=== PATIENT | female | born 1965 | race Caucasian/White ===

== ENCOUNTER 2017-12-20 09:12 | Emergency (ER) | payer MEDICAID ==
[2017-12-20] MEDS ORDERED: cefTRIAXone 1,000 MG in Lidocaine 1% 4 ML IM ONE (09:25)
--- NOTE | 2017-12-20 09:27 | EDM.PDOC ---
ED HPI GENERAL MEDICAL PROBLEM - General Chief Complaint: Skin Complaint Stated Complaint: FACE RED AND SWOLLEN Time Seen by Provider: 12/20/17 09:25 Source of Information: Reports: Patient - History of Present Illness INITIAL COMMENTS - FREE TEXT/NARRATIVE: HISTORY AND PHYSICAL: History of present illness: [Patient with history of erysipelas presents with facial redness swelling tenderness well demarcated lesion involving both cheeks and over the bridge of her nose, she has used Keflex in the past with mixed results, she is also taken 3 days of Keflex at current without any benefit whatsoever no fever nausea vomiting chills sweats ] Review of systems: As per history of present illness and below otherwise all systems reviewed and negative. Past medical history: As per history of present illness and as reviewed below otherwise noncontributory. Surgical history: As per history of present illness and as reviewed below otherwise noncontributory. Social history: No reported history of drug or alcohol abuse. Family history: As per history of present illness and as reviewed below otherwise noncontributory. Physical exam: HEENT: Atraumatic, normocephalic, pupils reactive, negative for conjunctival pallor or scleral icterus, mucous membranes moist, throat clear, neck supple, nontender, trachea midline. Red rash well demarcated involving cheeks and nasal bridge consistent with erysipelas Lungs: Clear to auscultation, breath sounds equal bilaterally, chest nontender. Heart: S1S2, regular, negative for clicks, rubs, or JVD. Abdomen: Soft, nondistended, nontender. Negative for masses or hepatosplenomegaly. Negative for costovertebral tenderness. Pelvis: Stable nontender. Genitourinary: Deferred. Rectal: Deferred. Extremities: Atraumatic, negative for cords or calf pain. Neurovascular unremarkable. Neuro: Awake, alert, oriented. Cranial nerves II through XII unremarkable. Cerebellum unremarkable. Motor and sensory unremarkable throughout. Exam nonfocal. Diagnostics: [Clinical ] Therapeutics: [1 g Rocephin IM Bactrim double strength by mouth twice a day #20 no refill ] Impression: Erysipelas Definitive disposition and diagnosis as appropriate pending reevaluation and review of above. Face Pain Score (Numeric/FACES): 8 - Related Data Allergies Allergy/AdvReac Type Severity Reaction Status Date / Time amoxicillin Allergy Anaphylactic Verified 12/20/17 09:22 Shock Penicillins Allergy Anaphylactic Verified 12/20/17 09:22 Shock Home Meds: Home Meds . [No Known Home Meds] 02/04/16 [History] Past Medical History - Past Health History Medical/Surgical History: Denies Medical/Surgical History - Infectious Disease History Infectious Disease History: Reports: Chicken Pox Social & Family History - Family History Family Medical History: Noncontributory Cardiac: Reports: [place] - Tobacco Use Smoking Status *Q: Current Every Day Smoker Years of Tobacco use: 40 Packs/Tins Daily: 1 - Caffeine Use Caffeine Use: Reports: Coffee - Recreational Drug Use Recreational Drug Use: No Drug Use in Last 12 Months: Yes Recreational Drug Type: Reports: Marijuana/Hashish Recreational Drug Use Frequency: Socially Recreational Drug Last Use: 2 weeks ago ED ROS GENERAL - Review of Systems Review Of Systems: ROS reveals no pertinent complaints other than HPI. ED EXAM, SKIN/RASH Exam: See Below Course - Vital Signs Last Recorded V/S: Last Vital Signs Temp 98.1 F 12/20/17 09:20 Pulse 83 12/20/17 09:20 Resp 18 12/20/17 09:20 BP 135/99 H 12/20/17 09:20 Pulse Ox 95 12/20/17 09:20 - Orders/Labs/Meds Orders: Active Orders 24 hr Category Date Time Status cefTRIAXone [Rocephin] 1,000 mg Med 12/20/17 09:25 Ordered Lidocaine 1% [Xylocaine-MPF 1%] 4 ml IM ONETIME Departure - Departure Time of Disposition: : Disposition: Home, Self-Care 01 Condition: Good Clinical Impression: Erysipelas - Discharge Information Referrals: PCP,None [Primary Care Provider] - Additional Instructions: The following information is given to patients seen in the emergency department who are being discharged to home. This information is to outline your options for follow-up care. We provide all patients seen in our emergency department with a follow-up referral. The need for follow-up, as well as the timing and circumstances, are variable depending upon the specifics of your emergency department visit. If you don't have a primary care physician on staff, we will provide you with a referral. We always advise you to contact your personal physician following an emergency department visit to inform them of the circumstance of the visit and for follow-up with them and/or the need for any referrals to a consulting specialist. The emergency department will also refer you to a specialist when appropriate. This referral assures that you have the opportunity for follow-up care with a specialist. All of these measure are taken in an effort to provide you with optimal care, which includes your follow-up. Under all circumstances we always encourage you to contact your private physician who remains a resource for coordinating your care. When calling for follow-up care, please make the office aware that this follow-up is from your recent emergency room visit. If for any reason you are refused follow-up, please contact the [facility] emergency department at and asked to speak to the emergency department charge nurse. - My Orders Last 24 Hours: My Active Orders 12/20/17 09:25 cefTRIAXone [Rocephin] 1,000 mg Lidocaine 1% [Xylocaine-MPF 1%] 4 ml IM ONETIME - Assessment/Plan Last 24 Hours: My Active Orders 12/20/17 09:25 cefTRIAXone [Rocephin] 1,000 mg Lidocaine 1% [Xylocaine-MPF 1%] 4 ml IM ONETIME
[2017-12-20 09:57] VITALS: BP 116/87
== END 2017-12-20 09:57 | disposition home or self-care (01) ==
LOC: MW.ED 09:12
DX: A46 Erysipelas (principal); F17.210 Nicotine dependence, cigarettes, uncomplicated; Z88.1 Allergy status to other antibiotic agents; Z88.0 Allergy status to penicillin
CPT/HCPCS: 96372; 99282; J0696

== ENCOUNTER 2018-02-12 13:10 | Emergency (ER) | payer MEDICAID ==
[2018-02-12] MEDS ORDERED: cefTRIAXone 1,000 MG in Lidocaine 1% 4 ML IM ONE (13:32)
--- NOTE | 2018-02-12 13:36 | EDM.PDOC ---
ED HPI GENERAL MEDICAL PROBLEM - General Chief Complaint: Skin Complaint Stated Complaint: INFECTION IN HEAD Time Seen by Provider: 02/12/18 13:32 Source of Information: Reports: Patient History Limitations: Reports: No Limitations - History of Present Illness INITIAL COMMENTS - FREE TEXT/NARRATIVE: HISTORY AND PHYSICAL: []52-year-old female presenting with facial pain and swelling History of Present Illness: []Patient has been seen multiple times in this emergency room over the last 2 years for the same complaint. Nose with her Erysipelas Review of Systems: As per history of present illness and below otherwise all systems reviewed and negative. Past medical history: As per history of present illness and as reviewed below otherwise noncontributory. Surgical history: As per history of present illness and as reviewed below otherwise noncontributory. Social history: No reported history of drug or alcohol abuse. Family history: As per history of present illness and as reviewed below otherwise noncontributory. Physical exam: Alert bumps started on her forehead last night and today now has red raised patches and edema to both cheeks surrounding her eyes and on her forehead, angry red raised patch on her right jaw. oriented female answering questions appropriately sniffling quite a bit of sinus congestion. HEENT: Atraumatic, normocehpalic, pupils reactive, negative for conjunctival pallor or scleral icterus, mucous membranes moist, throat clear, neck supple, nontender, trachea midline. Tympanic membranes without erythema. Scaling patch consistent with eczema behind her left ear. Lungs: Clear to auscultation, breath sounds equal bilaterally, chest non tender. Heart: S1S2, regular, negative for clicks, rubs, or JVD. Abdomen: Soft, nondistended, nontender. Negative for masses or hepatossplenmegaly. Negative for costovertebral tenderness. Pelvis: Stable nontender. Groin with mild intertrigo. Genitourinary: Deferred. Rectal: Deferred Extremities: Atraumatic, negative for cords or calf pain. Neurovascular unremarkable. Neuro: Awake, alert, oriented. Cranial nerves II through XII unremarkable. Cerebellum unremarkable. Motor and sensory unremarkable throughout. Exam nonfocal. She denies having asthma as a child History of seen many times for this condition and has had multiple diagnosis Patient and are both agreeable to this recommended course of action Diagnostics: [] Therapeutics: []Rocephin Solu-Medrol Impression: []Acute cellulitis Erysipelas Eczema Plan: []Discharged home Refer to Dr. Carmen Esparza [facility] [address], [facility] Bactrim DS 1 twice a day 10 days Diprolene cream bid medrol dose pack Definitive disposition and diagnosis as appropriate pending reevaluation and review of above. Onset: Sudden Duration: Day(s): (1) face Pain Score (Numeric/FACES): 7 - Related Data Allergies Allergy/AdvReac Type Severity Reaction Status Date / Time amoxicillin Allergy Anaphylactic Verified 02/12/18 13:17 Shock Penicillins Allergy Anaphylactic Verified 02/12/18 13:17 Shock Home Meds: Home Meds . 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 Musculoskeletal History: Reports: None Neurological History: Reports: None Psychiatric History: Reports: None Endocrine/Metabolic History: Reports: None Hematologic History: Reports: None Immunologic History: Reports: None Oncologic (Cancer) History: Reports: None Dermatologic History: Reports: Eczema - Infectious Disease History Infectious Disease History: Reports: Chicken Pox - Past Surgical History Head Surgeries/Procedures: Reports: None HEENT Surgical History: Reports: None Cardiovascular Surgical History: Reports: None Respiratory Surgical History: Reports: None GI Surgical History: Reports: None Female Surgical History: Reports: None Endocrine Surgical History: Reports: None Musculoskeletal Surgical History: Reports: None Oncologic Surgical History: Reports: None Dermatological Surgical History: Reports: None Social & Family History - Family History Family Medical History: Noncontributory Cardiac: Reports: [place] - Tobacco Use Smoking Status *Q: Current Every Day Smoker Years of Tobacco use: 40 Packs/Tins Daily: 1 - Caffeine Use Caffeine Use: Reports: Coffee - Recreational Drug Use Recreational Drug Use: No Drug Use in Last 12 Months: Yes Recreational Drug Type: Reports: Marijuana/Hashish Recreational Drug Use Frequency: Socially Recreational Drug Last Use: 2 weeks ago ED ROS GENERAL - Review of Systems Review Of Systems: ROS reveals no pertinent complaints other than HPI. ED EXAM, SKIN/RASH Exam: See Below (See dictation) Course - Vital Signs Last Recorded V/S: Last Vital Signs Temp 37.2 C 02/12/18 13:17 Pulse 87 02/12/18 13:17 Resp 20 02/12/18 13:17 BP 111/89 02/12/18 13:20 Pulse Ox 94 L 02/12/18 13:17 - Orders/Labs/Meds Meds: Medications Discontinued Medications Generic Name Dose Route Start Last Admin Trade Name Rigo PRN Reason Stop Dose Admin Ceftriaxone Sodium 1,000 mg/ 4 mls @ 4 mls/sec 02/12/18 13:32 Lidocaine HCl IM 02/12/18 13:33 ONETIME ONE Methylprednisolone Sodium Succinate 125 mg 02/12/18 13:32 Solu-Medrol IVPUSH 02/12/18 13:33 ONETIME ONE Departure - Departure Time of Disposition: 13:42 Disposition: Home, Self-Care 01 Condition: Good Clinical Impression: Erysipelas Cellulitis Qualifiers: Site of cellulitis: face Qualified Code(s): L03.211 - Cellulitis of face - Discharge Information Instructions: Cellulitis, Adult, [id number] Referrals: PCP,None [Primary Care Provider] - Carmen Esparza MD [Consulting Physician] - Forms: ED Department Discharge Additional Instructions: The following information is given to patients seen in the emergency department who are being discharged to home. This information is to outline your options for follow-up care. We provide all patients seen in our emergency department with a follow-up referral. The need for follow-up, as well as the timing and circumstances, are variable depending upon the specifics of your emergency department visit. If you don't have a primary care physician on staff, we will provide you with a referral. We always advise you to contact your personal physician following an emergency department visit to inform them of the circumstance of the visit and for follow-up with them and/or the need for any referrals to a consulting specialist. The emergency department will also refer you to a specialist when appropriate. This referral assures that you have the opportunity for followup care with a specialist. All of these measure are taken in an effort to provide you with optimal care, which includes your followup. Under all circumstances we always encourage you to contact your private physician who remains a resource for coordinating your care. When calling for followup care, please make the office aware that this follow-up is from your recent emergency room visit. If for any reason you are refused follow-up, please contact the [facility] emergency department at and asked to speak to the emergency department charge nurse. Follow up with Dr. Carmen Esparza medical laboratory specialist [facility] in [place] Referral has been made [address] [place] [address] Bactrim DS 1 twice a day 7 days Medrol Dosepak as directed Zyrtec 10 mg daily #30 Diprolene cream up to 3 times daily is a small amount at one time.
[2018-02-12] MEDS: methylPREDNISolone Sodium Succinate 125 MG/2 ML SDV IVPUSH ONE ×2 (13:57→14:00)
[2018-02-12] MEDS ORDERED: methylPREDNISolone Sodium Succinate 125 MG/2 ML SDV IM ONE (13:59)
[2018-02-12 14:04] VITALS: BP 115/66
== END 2018-02-12 14:10 | disposition home or self-care (01) ==
LOC: MW.ED 13:10
DX: A46 Erysipelas (principal); L03.211 Cellulitis of face; F17.210 Nicotine dependence, cigarettes, uncomplicated; Z88.0 Allergy status to penicillin; Z88.1 Allergy status to other antibiotic agents
CPT/HCPCS: 96372; 99283; J0696; J2930

== ENCOUNTER 2018-03-23 19:23 | Emergency (ER) | payer MEDICAID ==
--- NOTE | 2018-03-23 20:32 | EDM.PDOC ---
ED HPI GENERAL MEDICAL PROBLEM - General Chief Complaint: ENT Problem Stated Complaint: FACIAL RASH Time Seen by Provider: 03/23/18 20:19 Source of Information: Reports: Patient History Limitations: Reports: No Limitations - History of Present Illness INITIAL COMMENTS - FREE TEXT/NARRATIVE: HISTORY AND PHYSICAL: History of present illness: Patient is a 52-year-old female who presents to the emergency room with concerns of infection to her face and neck related to her eczema. She states yesterday she started to have an eczema flare and noticed some red irritation to her face. She states that in the past she has used Bactrim DS and prednisone along with [id number] allergy medication which was prescribed by her primary care provider- which resolves her flareup. She denies any fever, chills, chest pain, shortness of breath or cough. Denies any abdominal pain, nausea, vomiting, diarrhea or constipation. Has no visual changes or sensation of airway involvement. Review of systems: As per history of present illness and below otherwise all systems reviewed and negative. Past medical history: As per history of present illness and as reviewed below otherwise noncontributory. Surgical history: As per history of present illness and as reviewed below otherwise noncontributory. Social history: No reported history of drug or alcohol abuse. Family history: As per history of present illness and as reviewed below otherwise noncontributory. Physical exam: General: Well-developed and well-nourished 52-year-old female. Alert and oriented. Nontoxic appearing and in no acute distress. HEENT: Atraumatic, normocephalic, pupils equal and reactive bilaterally, negative for conjunctival pallor or scleral icterus, mucous membranes moist, throat clear, neck supple, nontender, trachea midline. No drooling or trismus noted. No meningeal signs Lungs: Clear to auscultation, breath sounds equal bilaterally, chest nontender. Heart: S1S2, regular rate and rhythm without overt murmur Abdomen: Soft, nondistended, nontender. Negative for masses or hepatosplenomegaly. Negative for costovertebral tenderness. Pelvis: Stable nontender. Genitourinary: Deferred. Rectal: Deferred. Skin: Skin is dry she does have patchy areas of excessively dry skin to her ears , cheek bones. She does have some areas of redness to her cheeks, forehead and lower neck. Besides her face her skin is intact, warm, dry. No lesions or rashes noted. Extremities: Atraumatic, negative for cords or calf pain. Neurovascular unremarkable. Neuro: Awake, alert, oriented. Cranial nerves II through XII unremarkable. Cerebellum unremarkable. Motor and sensory unremarkable throughout. Exam nonfocal. Notes: I am unfamiliar with the condition which she states she has; although I am comfortable giving her the prescription for Bactrim DS and Medrol Dosepak. She is on a to be seen sooner with a crime scene specialist, states her appointment is in a few months. She states she's currently switched insurance and does have an appointment to establish care with a primary care provider at [facility]. Her appointment is for March. Encouraged her to keep this appointment and follow-up. We reviewed signs and symptoms that would prompt her to come back to the emergency room. She voices understanding and is agreeable to plan of care. She denies any further questions at this time. Diagnostics: N/A Therapeutics: N/Ag Impression: Atopic dermatitis Plan: 1. Please take the antibiotic and steroid pack as directed. 2. Keep your appointment with your primary care provider at [facility]. Continue to set up your appointment with crime scene specialist as we discussed. 3. Return to the ED as needed and as discussed. Definitive disposition and diagnosis as appropriate pending reevaluation and review of above. Duration: Day(s): Location: Reports: Face Face Pain Score (Numeric/FACES): 2 - Related Data Allergies Allergy/AdvReac Type Severity Reaction Status Date / Time amoxicillin Allergy Anaphylactic Verified 03/23/18 19:51 Shock Penicillins Allergy Anaphylactic Verified 03/23/18 19:51 Shock Home Meds: Home Meds Cetirizine [ZyrTEC] 1 tab DAILY 03/23/18 [History] Past Medical History - Past Health History Medical/Surgical History: Denies Medical/Surgical History HEENT History: Reports: None Cardiovascular History: Reports: None Respiratory History: Reports: None Gastrointestinal History: Reports: None Genitourinary History: Reports: None 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 Musculoskeletal History: Reports: None Neurological History: Reports: None Psychiatric History: Reports: None Endocrine/Metabolic History: Reports: None Hematologic History: Reports: None Immunologic History: Reports: None Oncologic (Cancer) History: Reports: None Dermatologic History: Reports: Eczema - Infectious Disease History Infectious Disease History: Reports: Chicken Pox - Past Surgical History Head Surgeries/Procedures: Reports: None HEENT Surgical History: Reports: None Cardiovascular Surgical History: Reports: None Respiratory Surgical History: Reports: None GI Surgical History: Reports: None Female Surgical History: Reports: None Endocrine Surgical History: Reports: None Musculoskeletal Surgical History: Reports: None Oncologic Surgical History: Reports: None Dermatological Surgical History: Reports: None Social & Family History - Family History Family Medical History: Noncontributory Cardiac: Reports: [place] - Tobacco Use Smoking Status *Q: Current Every Day Smoker Years of Tobacco use: 40 Packs/Tins Daily: 1 - Caffeine Use Caffeine Use: Reports: Coffee - Recreational Drug Use Recreational Drug Use: No ED ROS ENT - Review of Systems Review Of Systems: ROS reveals no pertinent complaints other than HPI. ED EXAM, ENT - Physical Exam Exam: See Below (See dictation) Course - Vital Signs Last Recorded V/S: Last Vital Signs Temp 97.9 F 03/23/18 19:48 Pulse 71 03/23/18 19:48 Resp 20 03/23/18 19:48 BP 110/68 03/23/18 19:48 Pulse Ox 95 03/23/18 19:48 Departure - Departure Time of Disposition: 20:31 Disposition: Home, Self-Care 01 Clinical Impression: Atopic dermatitis Qualifiers: Atopic dermatitis type: unspecified Qualified Code(s): L20.9 - Atopic dermatitis, unspecified - Discharge Information Instructions: Atopic Dermatitis Referrals: PCP,Unknown [Primary Care Provider] - Forms: ED Department Discharge Additional Instructions: The following information is given to patients seen in the emergency department who are being discharged to home. This information is to outline your options for follow-up care. We provide all patients seen in our emergency department with a follow-up referral. The need for follow-up, as well as the timing and circumstances, are variable depending upon the specifics of your emergency department visit. If you don't have a primary care physician on staff, we will provide you with a referral. We always advise you to contact your personal physician following an emergency department visit to inform them of the circumstance of the visit and for follow-up with them and/or the need for any referrals to a consulting specialist. The emergency department will also refer you to a specialist when appropriate. This referral assures that you have the opportunity for follow-up care with a specialist. All of these measure are taken in an effort to provide you with optimal care, which includes your follow-up. Under all circumstances we always encourage you to contact your private physician who remains a resource for coordinating your care. When calling for follow-up care, please make the office aware that this follow-up is from your recent emergency room visit. If for any reason you are refused follow-up, please contact the [facility] Emergency Department at and asked to speak to the emergency department charge nurse. [facility] [address] [place] [id number] 1. Please take the antibiotic and steroid pack as directed. 2. Keep your appointment with your primary care provider at [facility]. Continue to set up your appointment with crime scene specialist as we discussed. 3. Return to the ED as needed and as discussed.
[2018-03-23 23:52] VITALS: BP 132/84
== END 2018-03-23 20:57 | disposition home or self-care (01) ==
LOC: MW.ED 19:23
DX: L20.9 Atopic dermatitis, unspecified (principal); Z88.0 Allergy status to penicillin; Z88.1 Allergy status to other antibiotic agents; F17.210 Nicotine dependence, cigarettes, uncomplicated
CPT/HCPCS: 99282

== ENCOUNTER 2018-04-25 17:19 | Emergency (ER) | payer MEDICAID ==
--- NOTE | 2018-04-25 17:35 | EDM.PDOC ---
ED HPI GENERAL MEDICAL PROBLEM - General Chief Complaint: Eye Problems Stated Complaint: LF SIDE OF FACE IS SWOLLEN Time Seen by Provider: 04/25/18 17:35 Source of Information: Reports: Patient - History of Present Illness INITIAL COMMENTS - FREE TEXT/NARRATIVE: HISTORY AND PHYSICAL: History of present illness: [Patient has a history of erysipelas, she is been treated several times with Bactrim and diffuse generally does well with this no fever nausea vomiting chills sweats Affecting over the zygomatic arch on her left thigh no ocular involvement no pain with movement of the eye itself no perioral orbital cellulitis she has a small patch over the parotid as well again no parotid involvement Follows with Dr. Wiley] Review of systems: As per history of present illness and below otherwise all systems reviewed and negative. Past medical history: As per history of present illness and as reviewed below otherwise noncontributory. Surgical history: As per history of present illness and as reviewed below otherwise noncontributory. Social history: No reported history of drug or alcohol abuse. Family history: As per history of present illness and as reviewed below otherwise noncontributory. Physical exam: HEENT: Atraumatic, normocephalic, pupils reactive, negative for conjunctival pallor or scleral icterus, mucous membranes moist, throat clear, neck supple, nontender, trachea midline. Lungs: Clear to auscultation, breath sounds equal bilaterally, chest nontender. Heart: S1S2, regular, negative for clicks, rubs, or JVD. Abdomen: Soft, nondistended, nontender. Negative for masses or hepatosplenomegaly. Negative for costovertebral tenderness. Pelvis: Stable nontender. Genitourinary: Deferred. Rectal: Deferred. Extremities: Atraumatic, negative for cords or calf pain. Neurovascular unremarkable. Neuro: Awake, alert, oriented. Cranial nerves II through XII unremarkable. Cerebellum unremarkable. Motor and sensory unremarkable throughout. Exam nonfocal. Skin as per history of present illness otherwise unremarkable no exudate for culture Diagnostics: [Clinical ] Therapeutics: [ Bactrim double strength ] Impression: [ erysipelas ] Definitive disposition and diagnosis as appropriate pending reevaluation and review of above. Left Face Pain Score (Numeric/FACES): 4 - Related Data Allergies Allergy/AdvReac Type Severity Reaction Status Date / Time amoxicillin Allergy Anaphylactic Verified 03/23/18 19:51 Shock Penicillins Allergy Anaphylactic Verified 03/23/18 19:51 Shock Home Meds: Home Meds Cetirizine [ZyrTEC] 1 tab DAILY 03/23/18 [History] Past Medical History - Past Health History Medical/Surgical History: Denies Medical/Surgical History HEENT History: Reports: None Cardiovascular History: Reports: None Respiratory History: Reports: None Gastrointestinal History: Reports: None Genitourinary History: Reports: None INTERNAL SALESPERSON History: Reports: None Musculoskeletal History: Reports: None Neurological History: Reports: None Psychiatric History: Reports: None Endocrine/Metabolic History: Reports: None Hematologic History: Reports: None Immunologic History: Reports: None Oncologic (Cancer) History: Reports: None Dermatologic History: Reports: Eczema - Infectious Disease History Infectious Disease History: Reports: Chicken Pox - Past Surgical History Head Surgeries/Procedures: Reports: None HEENT Surgical History: Reports: None Cardiovascular Surgical History: Reports: None Respiratory Surgical History: Reports: None GI Surgical History: Reports: None Female Surgical History: Reports: None Endocrine Surgical History: Reports: None Musculoskeletal Surgical History: Reports: None Oncologic Surgical History: Reports: None Dermatological Surgical History: Reports: None Social & Family History - Family History Family Medical History: Noncontributory Cardiac: Reports: [place] - Caffeine Use Caffeine Use: Reports: Coffee ED ROS GENERAL - Review of Systems Review Of Systems: See Below ED EXAM GENERAL W FULL EYE - Physical Exam Exam: See Below Course - Vital Signs Last Recorded V/S: Last Vital Signs Temp 97.3 F 04/25/18 17:34 Pulse 75 04/25/18 17:34 Resp 18 04/25/18 17:34 BP 132/85 04/25/18 17:34 Pulse Ox 93 L 04/25/18 17:34 Departure - Departure Time of Disposition: 17:44 Disposition: Home, Self-Care 01 Condition: Good Clinical Impression: Erysipelas - Discharge Information Referrals: Hung Wiley MD [Primary Care Provider] - Forms: ED Department Discharge Additional Instructions: The following information is given to patients seen in the emergency department who are being discharged to home. This information is to outline your options for follow-up care. We provide all patients seen in our emergency department with a follow-up referral. The need for follow-up, as well as the timing and circumstances, are variable depending upon the specifics of your emergency department visit. If you don't have a primary care physician on staff, we will provide you with a referral. We always advise you to contact your personal physician following an emergency department visit to inform them of the circumstance of the visit and for follow-up with them and/or the need for any referrals to a consulting specialist. The emergency department will also refer you to a specialist when appropriate. This referral assures that you have the opportunity for follow-up care with a specialist. All of these measure are taken in an effort to provide you with optimal care, which includes your follow-up. Under all circumstances we always encourage you to contact your private physician who remains a resource for coordinating your care. When calling for follow-up care, please make the office aware that this follow-up is from your recent emergency room visit. If for any reason you are refused follow-up, please contact the [facility] emergency department at and asked to speak to the emergency department charge nurse.
[2018-04-25 17:38] VITALS: BP 132/85
== END 2018-04-25 17:55 | disposition home or self-care (01) ==
LOC: MW.ED 17:19
DX: A46 Erysipelas (principal); Z88.0 Allergy status to penicillin; Z88.1 Allergy status to other antibiotic agents; Z79.899 Other long term (current) drug therapy
CPT/HCPCS: 99283

== ENCOUNTER 2018-06-20 08:15 | Emergency (ER) | payer MEDICAID ==
[2018-06-20] MEDS ORDERED: Ketorolac 60 MG/2 ML SDV IM ONE (08:31)
--- NOTE | 2018-06-20 08:36 | EDM.PDOC ---
ED HPI GENERAL MEDICAL PROBLEM - General Chief Complaint: Skin Complaint Stated Complaint: face red and swollen Time Seen by Provider: 06/20/18 08:26 - History of Present Illness INITIAL COMMENTS - FREE TEXT/NARRATIVE: HISTORY AND PHYSICAL: History of present illness: The patient is a 53-year-old female who follows with Dr. Wiley at [facility] and presents with a shoe swelling redness and rash that she has had multiple times in the past. Patient tells me that she has a history of eczema and erysipelas and has been treated in the past for these facial complaints with a Medrol pack and Bactrim and it has cleared up. She says that Dr. Wiley is currently trying different topicals to see what her response is and none of them seem to be working and in fact she feels worse with them. She says she takes a allergy pill every day for the last 3 years and has tried over-the- counter Benadryl and Aleve for the pain and symptoms. She contacted [facility] and they could not get her into the schedule so she is here. She has presented several times this year in November and the beginning of April for similar symptoms and says that the treatment plan that she has been given always works. She says that she may need to see a poultry scientist per Dr. Wiley going forward. She has no other systemic complaints of fever chills chest pain shortness of breath abdominal pain oropharyngeal swelling difficulty swallowing and she is eating and drinking normally. She says that her facial rash is very dry and irritated but it's not specifically itchy. The patient also states that she has a chronic history of ear problems with copious cerumen production and for ear drainage and has been told that potentially his recurring symptoms may be due to that. She has never seen an ENT before ;she is not here for the ear issues Review of systems: As per history of present illness and below otherwise all systems reviewed and negative. Past medical history: As per history of present illness and as reviewed below otherwise noncontributory. Surgical history: As per history of present illness and as reviewed below otherwise noncontributory. Social history: No reported history of drug or alcohol abuse. Family history: As per history of present illness and as reviewed below otherwise noncontributory. Physical exam: General: Well developed well-nourished female who is speaking clearly in the ED and vital signs are noted by me. She is nontoxic HEENT: Atraumatic, normocephalic, pupils reactive, negative for conjunctival pallor or scleral icterus, mucous membranes moist, throat clear, neck supple, nontender, trachea midline. There is no oropharyngeal swelling and both the ears have copious cerumen and debris in it and the TMs are dulled and there is no redness active drainage or mastoid tenderness. There is no gross cervical adenopathy or nuchal rigidity. At her face there is soft tissue swelling and ill -defined pink erythema which is seen on her for head more in the middle and then extending outwards as well as in the periorbital areas. This does not extend down to her perioral area. There is no crepitus or tenderness and soft tissue swelling and erythema do involve the eyelids. She has no gross ptosis. EOMs are intact. Lungs: Clear to auscultation, breath sounds equal bilaterally, chest nontender. There is no wheezing or stridor Heart: S1S2, regular and rhythm no overt murmurs Abdomen: Soft, nondistended, nontender. NABS Pelvis: Deferred Genitourinary: Deferred. Rectal: Deferred. Extremities: Atraumatic, negative for cords or calf pain. Neurovascular unremarkable. Neuro: Awake, alert, oriented. Cranial nerves II through XII unremarkable. Cerebellum unremarkable. Motor and sensory unremarkable throughout. Exam nonfocal. Diagnostics: [] Therapeutics: Toradol per patient request I've advised the patient to continue to follow-up with Dr. Wiley and to stop all topicals that she is using and she may be having a contact reaction to it. I will give her a Medrol pack and Bactrim as this has worked in the past and have advised her to continue with her workup to establish definitive diagnosis Impression: Facial contact reaction/erysipelas flareup Definitive disposition and diagnosis as appropriate pending reevaluation and review of above. Face Pain Score (Numeric/FACES): 10 - Related Data Allergies Allergy/AdvReac Type Severity Reaction Status Date / Time amoxicillin Allergy Anaphylactic Verified 06/20/18 08:26 Shock Penicillins Allergy Anaphylactic Verified 06/20/18 08:26 Shock Home Meds: Home Meds Cetirizine [ZyrTEC] 1 tab PO DAILY 03/23/18 [History] Past Medical History - Past Health History Medical/Surgical History: Denies Medical/Surgical History HEENT History: Reports: None Cardiovascular History: Reports: None Respiratory History: Reports: None Gastrointestinal History: Reports: None Genitourinary History: Reports: None MANAGER DIGITAL History: Reports: None Musculoskeletal History: Reports: None Neurological History: Reports: None Psychiatric History: Reports: None Endocrine/Metabolic History: Reports: None Hematologic History: Reports: None Immunologic History: Reports: None Oncologic (Cancer) History: Reports: None Dermatologic History: Reports: Eczema, Other (See Below) Other Dermatologic History: erisypleas - Infectious Disease History Infectious Disease History: Reports: Chicken Pox - Past Surgical History Head Surgeries/Procedures: Reports: None HEENT Surgical History: Reports: None Cardiovascular Surgical History: Reports: None Respiratory Surgical History: Reports: None GI Surgical History: Reports: None Female Surgical History: Reports: None Endocrine Surgical History: Reports: None Musculoskeletal Surgical History: Reports: None Oncologic Surgical History: Reports: None Dermatological Surgical History: Reports: None Social & Family History - Family History Family Medical History: Noncontributory Cardiac: Reports: [place] - Tobacco Use Smoking Status *Q: Current Every Day Smoker Years of Tobacco use: 40 Packs/Tins Daily: 1 - Caffeine Use Caffeine Use: Reports: Coffee - Recreational Drug Use Recreational Drug Use: No ED ROS GENERAL - Review of Systems Review Of Systems: ROS reveals no pertinent complaints other than HPI. ED EXAM, SKIN/RASH Exam: See Below (See dictation) Course - Vital Signs Last Recorded V/S: Last Vital Signs Temp 36.9 C 06/20/18 08:24 Pulse 78 06/20/18 08:24 Resp 18 06/20/18 08:24 BP 158/90 H 06/20/18 08:24 Pulse Ox 97 06/20/18 08:24 - Orders/Labs/Meds Orders: Active Orders 24 hr Category Date Time Status Ketorolac [Toradol] Med 06/20/18 08:31 Once 60 mg IM ONETIME ONE Departure - Departure Time of Disposition: 08:37 Disposition: Home, Self-Care 01 Condition: Good Clinical Impression: Erysipelas Contact dermatitis Qualifiers: Contact dermatitis type: unspecified Contact dermatitis trigger: unspecified trigger Qualified Code(s): L25.9 - Unspecified contact dermatitis, unspecified cause - Discharge Information Referrals: Hung Wiley MD [Primary Care Provider] - Additional Instructions: The following information is given to patients seen in the emergency department who are being discharged to home. This information is to outline your options for follow-up care. We provide all patients seen in our emergency department with a follow-up referral. The need for follow-up, as well as the timing and circumstances, are variable depending upon the specifics of your emergency department visit. If you don't have a primary care physician on staff, we will provide you with a referral. We always advise you to contact your personal physician following an emergency department visit to inform them of the circumstance of the visit and for follow-up with them and/or the need for any referrals to a consulting specialist. The emergency department will also refer you to a specialist when appropriate. This referral assures that you have the opportunity for followup care with a specialist. All of these measure are taken in an effort to provide you with optimal care, which includes your followup. Under all circumstances we always encourage you to contact your private physician who remains a resource for coordinating your care. When calling for followup care, please make the office aware that this follow-up is from your recent emergency room visit. If for any reason you are refused follow-up, please contact the [facility] emergency department at and ask to speak to the emergency department charge nurse. [address] [place] [address] Please stop all topicals you are currently using and try [id number] Aquaphor as we discussed to help moisturize and protect her skin while it is healing. He may add [id number] Benadryl for any itching and burning. Please use medications as prescribed and sent to the pharmacy, Medrol Dosepak and Bactrim. Please call and schedule a follow-up appointment with Dr. Wiley and return to ER as needed and as discussed - My Orders Last 24 Hours: My Active Orders 06/20/18 08:31 Ketorolac [Toradol] 60 mg IM ONETIME ONE - Assessment/Plan Last 24 Hours: My Active Orders 06/20/18 08:31 Ketorolac [Toradol] 60 mg IM ONETIME ONE
[2018-06-20 08:46] VITALS: BP 158/90
== END 2018-06-20 08:48 | disposition home or self-care (01) ==
LOC: MW.ED 08:15
DX: A46 Erysipelas (principal); L25.9 Unspecified contact dermatitis, unspecified cause; F17.210 Nicotine dependence, cigarettes, uncomplicated; Z88.1 Allergy status to other antibiotic agents; Z88.0 Allergy status to penicillin; Z79.899 Other long term (current) drug therapy
CPT/HCPCS: 96372; 99282; J1885

== ENCOUNTER 2018-11-01 08:39 | Emergency (ER) | payer MEDICAID ==
--- NOTE | 2018-11-01 09:14 | EDM.PDOC ---
ED HPI GENERAL MEDICAL PROBLEM - General Chief Complaint: Neck Problem Stated Complaint: NECK PAIN AND INFECTION IN FACE Time Seen by Provider: 11/01/18 08:39 Source of Information: Reports: Patient History Limitations: Reports: No Limitations - History of Present Illness INITIAL COMMENTS - FREE TEXT/NARRATIVE: History of present illness: []Patient has history of erysipelas and cervical stenosis has 2 separate complaints, one of right ear pain and swelling which is spreading to her face and neck and chronic cervical stenosis which is flaring up and causing her increased neck pain. She denies any numbness or tingling, fevers, chills, difficulty swallowing or any respiratory difficulty. Review of systems: As per history of present illness and below otherwise all systems reviewed and negative. Past medical history: As per history of present illness and as reviewed below otherwise noncontributory. Surgical history: As per history of present illness and as reviewed below otherwise noncontributory. Social history: No reported history of drug or alcohol abuse. Family history: As per history of present illness and as reviewed below otherwise noncontributory. Physical exam: General: Well developed, well nourished in NAD HEENT: Atraumatic, normocephalic, pupils reactive, negative for conjunctival pallor or scleral icterus, mucous membranes moist, throat clear, neck supple, nontender, trachea midline. Right earlobe is thick erythematous and edematous standing to the ear canal there is black cerumen noted in the EAC left is normal Lungs: Clear to auscultation, breath sounds equal bilaterally, chest nontender. Heart: S1S2, regular, negative for clicks, rubs, or JVD. Abdomen: NABS, Soft, nondistended, nontender. Negative for masses or hepatosplenomegaly. Negative for costovertebral tenderness. Pelvis: Stable nontender. Genitourinary: Deferred. Rectal: Deferred. Extremities: Atraumatic, negative for cords or calf pain. Neurovascular unremarkable. Neuro: Awake, alert, oriented. Cranial nerves II through XII unremarkable. Cerebellum unremarkable. Motor and sensory unremarkable throughout. Exam nonfocal. Skin:warm and dry Diagnostics: glucose Therapeutics: None ED Course: Unremarkable Impression: Otitis external with some red cellulitis to the ear lobe Prescriptions: Bactrim twice a day, Medrol Dosepak Plan: Follow-up with primary care return if symptoms worsen or change. Definitive disposition and diagnosis as appropriate pending reevaluation and review of above. Neck Pain Score (Numeric/FACES): 10 - Related Data Allergies Allergy/AdvReac Type Severity Reaction Status Date / Time amoxicillin Allergy Anaphylactic Verified 11/01/18 08:59 Shock Penicillins Allergy Anaphylactic Verified 11/01/18 08:59 Shock Home Meds: Home Meds Cetirizine [ZyrTEC] 1 tab PO DAILY 03/23/18 [History] Sulfamethoxazole/Trimethoprim [Bactrim Ds Tablet] 1 each PO BID #20 tablet 06/20 [Rx] methylPREDNISolone [Medrol] 4 mg PO DAILY #1 dospk 06/20/18 [Rx] Sulfamethoxazole/Trimethoprim [Bactrim Ds Tablet] 1 each PO BID #20 tablet 11/01 [Rx] methylPREDNISolone [Medrol] 4 mg PO ASDIRECTED #1 dosepk 11/01/18 [Rx] Past Medical History - Past Health History Medical/Surgical History: Denies Medical/Surgical History HEENT History: Reports: None Cardiovascular History: Reports: None Respiratory History: Reports: None Gastrointestinal History: Reports: None Genitourinary History: Reports: None QUALITY CONTROL SYSTEMS 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: Reports: None Musculoskeletal History: Reports: None Neurological History: Reports: None Psychiatric History: Reports: None Endocrine/Metabolic History: Reports: None Hematologic History: Reports: None Immunologic History: Reports: None Oncologic (Cancer) History: Reports: None Dermatologic History: Reports: Eczema, Other (See Below) Other Dermatologic History: erisypleas - Infectious Disease History Infectious Disease History: Reports: Chicken Pox - Past Surgical History Head Surgeries/Procedures: Reports: None HEENT Surgical History: Reports: None Cardiovascular Surgical History: Reports: None Respiratory Surgical History: Reports: None GI Surgical History: Reports: None Female Surgical History: Reports: None Endocrine Surgical History: Reports: None Musculoskeletal Surgical History: Reports: None Oncologic Surgical History: Reports: None Dermatological Surgical History: Reports: None Social & Family History - Family History Family Medical History: Noncontributory Cardiac: Reports: [place] - Tobacco Use Smoking Status *Q: Current Every Day Smoker Years of Tobacco use: 40 Packs/Tins Daily: 1 - Caffeine Use Caffeine Use: Reports: Coffee - Recreational Drug Use Recreational Drug Use: No ED ROS ENT - Review of Systems Review Of Systems: ROS reveals no pertinent complaints other than HPI. ED EXAM, ENT - Physical Exam Exam: See Below (History of present illness) Course - Vital Signs Last Recorded V/S: Last Vital Signs Temp 97.9 F 11/01/18 08:59 Pulse 72 11/01/18 08:59 Resp 18 11/01/18 08:59 BP 113/79 11/01/18 08:59 Pulse Ox 96 11/01/18 08:59 Departure - Departure Time of Disposition: 09:14 Disposition: Home, Self-Care 01 Condition: Good Clinical Impression: Otitis externa Qualifiers: Otitis externa type: diffuse Chronicity: acute Laterality: right Qualified Code (s): H60.311 - Diffuse otitis externa, right ear - Discharge Information *PRESCRIPTION DRUG MONITORING PROGRAM REVIEWED*: No *COPY OF PRESCRIPTION DRUG MONITORING REPORT IN PATIENT TODD: No Prescriptions: methylPREDNISolone [Medrol] 4 mg PO ASDIRECTED #1 dosepk Sulfamethoxazole/Trimethoprim [Bactrim Ds Tablet] 1 each PO BID #20 tablet Referrals: Hung Wiley MD [Primary Care Provider] - Forms: ED Department Discharge Additional Instructions: The following information is given to patients seen in the emergency department who are being discharged to home. This information is to outline your options for follow-up care. We provide all patients seen in our emergency department with a follow-up referral. The need for follow-up, as well as the timing and circumstances, are variable depending upon the specifics of your emergency department visit. If you don't have a primary care physician on staff, we will provide you with a referral. We always advise you to contact your personal physician following an emergency department visit to inform them of the circumstance of the visit and for follow-up with them and/or the need for any referrals to a consulting specialist. The emergency department will also refer you to a specialist when appropriate. This referral assures that you have the opportunity for follow-up care with a specialist. All of these measure are taken in an effort to provide you with optimal care, which includes your follow-up. Under all circumstances we always encourage you to contact your private physician who remains a resource for coordinating your care. When calling for follow-up care, please make the office aware that this follow-up is from your recent emergency room visit. If for any reason you are refused follow-up, please contact the [facility] Emergency Department at and asked to speak to the emergency department charge nurse. Take meds as directed follow-up with primary care return if symptoms worsen or change. [facility] [address] [place] [id number]
[2018-11-01 09:35] VITALS: BP 111/79
== END 2018-11-01 09:58 | disposition home or self-care (01) ==
LOC: MW.ED 08:39
DX: H60.11 Cellulitis of right external ear (principal); H60.311 Diffuse otitis externa, right ear; F17.210 Nicotine dependence, cigarettes, uncomplicated; Z88.2 Allergy status to sulfonamides; Z88.8 Allergy status to other drugs, medicaments and biological substances; Z88.1 Allergy status to other antibiotic agents
CPT/HCPCS: 82962; 99283

== ENCOUNTER 2019-02-21 11:25 | Emergency (ER) | payer MEDICAID ==
[2019-02-21] MEDS ORDERED: Sodium Chloride 0.9% 1,000 ML IV ONE (11:30)
[2019-02-21] MEDS ORDERED: Ondansetron 4 MG/2 ML SDV IVPUSH ONE (11:30)
--- NOTE | 2019-02-21 11:33 | EDM.PDOC ---
ED HPI GENERAL MEDICAL PROBLEM - General Chief Complaint: Gastrointestinal Problem Stated Complaint: VOMITING Time Seen by Provider: 02/21/19 11:30 Source of Information: Reports: Patient History Limitations: Reports: No Limitations - History of Present Illness INITIAL COMMENTS - FREE TEXT/NARRATIVE: HISTORY AND PHYSICAL: History of present illness: Patient is a 53-year-old female who presents to the emergency room today with complaints of upper abdominal pain, nausea, vomiting and diarrhea 2 days. Patient denies any fever, chills, headache, change in vision, syncope or near syncope. Denies any chest pain, back pain, shortness of breath or cough. Denies any vaginal bleeding/discharge or dysuria. Has not noted any blood in urine or stool. Patient has been eating and drinking appropriately. Review of systems: As per history of present illness and below otherwise all systems reviewed and negative. Past medical history: As per history of present illness and as reviewed below otherwise noncontributory. Surgical history: As per history of present illness and as reviewed below otherwise noncontributory. Social history: See social history for further information Family history: As per history of present illness and as reviewed below otherwise noncontributory. Physical exam: General: Well-developed and well-nourished 53-year-old female. Alert and oriented. Nontoxic appearing and in no acute distress. HEENT: Atraumatic, normocephalic, pupils equal and reactive bilaterally, negative for conjunctival pallor or scleral icterus, mucous membranes moist, TMs normal bilaterally, throat clear, neck supple, nontender, trachea midline. No drooling or trismus noted. No meningeal signs. No hot potato voice noted. Lungs: Clear to auscultation, breath sounds equal bilaterally, chest nontender. Heart: S1S2, regular rate and rhythm without overt murmur Abdomen: Soft, nondistended, nontender. Negative for masses or hepatosplenomegaly. Negative for costovertebral tenderness. Pelvis: Stable nontender. Genitourinary: Deferred. Rectal: Deferred. Skin: Intact, warm, dry. No lesions or rashes noted. Extremities: Atraumatic, moves all extremities per self without difficulty or deficits, negative for cords or calf pain. Neurovascular unremarkable. Neuro: Awake, alert, oriented. Cranial nerves II through XII unremarkable. Cerebellum unremarkable. Motor and sensory unremarkable throughout. Exam nonfocal. Notes: CT of the abdomen and pelvis shows no acute findings. Lab work is unremarkable. Patient has not been able to give us any form of stool sample. She states she has had 1 or 2 loose stools while at home. I will write for outpatient stool studies as there were no definite findings here today. Supportive care measures were reviewed and discussed. Voices understanding and is agreeable to plan of care. Denies any further questions or concerns at this time. Diagnostics: CBC, CMP, Lipase, UA Therapeutics: IV fluids, Zofran Prescription: Zofran Outpatient Stool Studies Impression: Abdominal Pain, unspecified Nausea and vomiting Plan: 1. Lab work and CT of the abdomen/pelvis are unremarkable. 2. Increase oral fluids. Advance diet as tolerated. 3. Follow up with your primary care provider or general surgeon as we discussed. Return to the ED as needed and as discussed. Definitive disposition and diagnosis as appropriate pending reevaluation and review of above. upper abdomen Pain Score (Numeric/FACES): 9 - Related Data Allergies Allergy/AdvReac Type Severity Reaction Status Date / Time Penicillins Allergy Anaphylactic Verified 02/21/19 11:49 Shock Home Meds: Home Meds Cetirizine [ZyrTEC] 1 tab PO DAILY 03/23/18 [History] Naproxen Sodium [Aleve] 2 tab PO DAILY PRN 02/21/19 [History] Past Medical History - Past Health History Medical/Surgical History: Denies Medical/Surgical History HEENT History: Reports: None Cardiovascular History: Reports: None Respiratory History: Reports: None Gastrointestinal History: Reports: None Genitourinary History: Reports: None 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 Musculoskeletal History: Reports: None Neurological History: Reports: None Psychiatric History: Reports: None Endocrine/Metabolic History: Reports: None Hematologic History: Reports: None Immunologic History: Reports: None Oncologic (Cancer) History: Reports: None Dermatologic History: Reports: Eczema, Other (See Below) Other Dermatologic History: erisypleas - Infectious Disease History Infectious Disease History: Reports: Chicken Pox - Past Surgical History Head Surgeries/Procedures: Reports: None HEENT Surgical History: Reports: None Cardiovascular Surgical History: Reports: None Respiratory Surgical History: Reports: None GI Surgical History: Reports: None Female Surgical History: Reports: None Endocrine Surgical History: Reports: None Musculoskeletal Surgical History: Reports: None Oncologic Surgical History: Reports: None Dermatological Surgical History: Reports: None Social & Family History - Family History Family Medical History: Noncontributory Cardiac: Reports: NC - Caffeine Use Caffeine Use: Reports: Coffee ED ROS GENERAL - Review of Systems Review Of Systems: ROS reveals no pertinent complaints other than HPI. ED EXAM, RENAL/ - Physical Exam Exam: See Below (See dictation) Course - Vital Signs Last Recorded V/S: Last Vital Signs Temp 97.3 F 02/21/19 11:45 Pulse 105 H 02/21/19 11:45 Resp 22 H 02/21/19 11:45 BP Pulse Ox 95 02/21/19 11:45 - Orders/Labs/Meds Orders: Active Orders 24 hr Category Date Time Status CDIFF TOX A+B [OP] Stat Lab 02/21/19 13:34 Ordered CULTURE STOOL + CAMPY+SHIGATOX [RM] Stat Lab 02/21/19 13:34 Ordered OVA & PARASITES BY IMMUNOASSAY [MREF] Stat Lab 02/21/19 13:34 Ordered UA RFX DAVEY AND CULT IF INDIC [URIN] Stat Lab 02/21/19 11:30 Ordered Isolation [COMM] Stat Oth 02/21/19 13:35 Ordered Labs: Laboratory Tests 02/21/19 02/21/19 02/21/19 Range/Units 11:55 11:55 11:56 WBC 13.70 H (4.0-11.0) K/uL RBC 4.75 (4.30-5.90) M/uL Hgb 15.0 (12.0-16.0) g/dL Hct 43.9 (36.0-46.0) % MCV 92.4 (80.0-98.0) fL MCH 31.6 (27.0-32.0) pg MCHC 34.2 (31.0-37.0) g/dL RDW Std Deviation 44.6 (28.0-62.0) fl RDW Coeff of Robby 13 (11.0-15.0) % Plt Count 364 (150-400) K/uL MPV 10.80 (7.40-12.00) fL Neut % (Auto) 43.8 L (48.0-80.0) % Lymph % (Auto) 45.0 H (16.0-40.0) % [place] % (Auto) 8.8 (0.0-15.0) % Eos % (Auto) 2.0 (0.0-7.0) % Baso % (Auto) 0.4 (0.0-1.5) % Neut # (Auto) 6.0 H (1.4-5.7) K/uL Lymph # (Auto) 6.2 H (0.6-2.4) K/uL [place] # (Auto) 1.2 H (0.0-0.8) K/uL Eos # (Auto) 0.3 (0.0-0.7) K/uL Baso # (Auto) 0.1 (0.0-0.1) K/uL Nucleated RBC % 0.0 /100WBC Nucleated RBCs # 0 K/uL Sodium 141 (136-145) mmol/L Potassium 4.2 (3.5-5.1) mmol/L Chloride 104 (98-107) mmol/L Carbon Dioxide 23.6 (21.0-32.0) mmol/L BUN 20 H (7.0-18.0) mg/dL Creatinine 1.0 (0.6-1.0) mg/dL Est Cr Clr Drug Dosing 57.20 mL/min Estimated GFR (MDRD) 57.6 ml/min Glucose 113 H (74-106) mg/dL Calcium 9.5 (8.5-10.1) mg/dL Total Bilirubin 0.3 (0.2-1.0) mg/dL AST 21 (15-37) IU/L ALT 32 (14-63) IU/L Alkaline Phosphatase 67 (46-116) U/L Total Protein 8.0 (6.4-8.2) g/dL Albumin 4.1 (3.4-5.0) g/dL Globulin 3.9 (2.6-4.0) g/dL Albumin/Globulin Ratio 1.1 (0.9-1.6) Lipase 196 (73-393) U/L H. pylori IgG Antibody NEGATIVE (NEG) Meds: Medications Discontinued Medications Generic Name Dose Route Start Last Admin Trade Name Freq PRN Reason Stop Dose Admin Al Hydroxide/Mg Hydroxide 15 0 ml 02/21/19 13:35 ml/ Metoclopramide HCl 5 mg/ PO 02/21/19 13:36 Lidocaine HCl 5 ml ONETIME ONE Sodium Chloride 1,000 mls @ 999 mls/hr 02/21/19 11:30 02/21/19 11:56 Normal Saline IV 02/21/19 12:30 999 mls/hr STAT ONE Administration Iopamidol 85 ml 02/21/19 12:52 02/21/19 12:58 Isovue Multipack-370 (76%) IVPUSH 02/21/19 12:53 85 ml ONETIME STA Administration Morphine Sulfate 2 mg 02/21/19 11:57 02/21/19 12:08 Morphine IVPUSH 02/21/19 11:58 2 mg ONETIME ONE Administration Ondansetron HCl 4 mg 02/21/19 11:30 02/21/19 11:56 Zofran IVPUSH 02/21/19 11:31 4 mg ONETIME ONE Administration Departure - Departure Disposition: Home, Self-Care 01 Clinical Impression: Abdominal pain Qualifiers: Abdominal location: generalized Qualified Code(s): R10.84 - Generalized abdominal pain Nausea and vomiting Qualifiers: Vomiting type: unspecified Vomiting Intractability: non-intractable Qualified Code(s): R11.2 - Nausea with vomiting, unspecified - Discharge Information Instructions: Viral Gastroenteritis, Adult, [id number] Referrals: Hung Wiley MD [Primary Care Provider] - Forms: ED Department Discharge Additional Instructions: The following information is given to patients seen in the emergency department who are being discharged to home. This information is to outline your options for follow-up care. We provide all patients seen in our emergency department with a follow-up referral. The need for follow-up, as well as the timing and circumstances, are variable depending upon the specifics of your emergency department visit. If you don't have a primary care physician on staff, we will provide you with a referral. We always advise you to contact your personal physician following an emergency department visit to inform them of the circumstance of the visit and for follow-up with them and/or the need for any referrals to a consulting specialist. The emergency department will also refer you to a specialist when appropriate. This referral assures that you have the opportunity for follow-up care with a specialist. All of these measure are taken in an effort to provide you with optimal care, which includes your follow-up. Under all circumstances we always encourage you to contact your private physician who remains a resource for coordinating your care. When calling for follow-up care, please make the office aware that this follow-up is from your recent emergency room visit. If for any reason you are refused follow-up, please contact the [facility] Emergency Department at and asked to speak to the emergency department charge nurse. [facility] [address] [place] [address] [facility] [address] [place] [address] 1. Lab work and CT of the abdomen/pelvis are unremarkable. 2. Increase oral fluids. Advance diet as tolerated. 3. Follow up with your primary care provider or general surgeon as we discussed. Return to the ED as needed and as discussed. - My Orders Last 24 Hours: My Active Orders 02/21/19 11:30 UA RFX DAVEY AND CULT IF INDIC [URIN] Stat 02/21/19 13:34 CDIFF TOX A+B [OP] Stat CULTURE STOOL + CAMPY+SHIGATOX [RM] Stat OVA & PARASITES BY IMMUNOASSAY [MREF] Stat 02/21/19 13:35 Isolation [COMM] Stat - Assessment/Plan Last 24 Hours: My Active Orders 02/21/19 11:30 UA RFX DAVEY AND CULT IF INDIC [URIN] Stat 02/21/19 13:34 CDIFF TOX A+B [OP] Stat CULTURE STOOL + CAMPY+SHIGATOX [RM] Stat OVA & PARASITES BY IMMUNOASSAY [MREF] Stat 02/21/19 13:35 Isolation [COMM] Stat
[2019-02-21] MEDS ORDERED: Morphine 2 MG/ML Syringe IVPUSH ONE (11:57)
[2019-02-21] MEDS ORDERED: Iopamidol 755 MG/ML 500 ML Multipack Bottle IVPUSH STA (12:52)
--- NOTE | 2019-02-21 13:28 | CT ---
CT of the abdomen and pelvis with contrast. HISTORY: Pain TECHNIQUE: Axial CT images were obtained of the abdomen and pelvis following administration of 85 mL of Isovue-370 in the left antecubital fossa without complication. Coronal and sagittal reconstructions obtained. FINDINGS: The lung bases are clear, no pleural effusion. Mild atelectasis within the left lingula. The liver, spleen, adrenal glands, and pancreas appear normal. The gallbladder is normal. There is no bulky retroperitoneal lymphadenopathy or abdominal ascites. The kidneys enhance and function symmetrically without evidence of obstructive uropathy. Cyst noted within the upper pole of the left kidney. The large and small bowel are normal in caliber without evidence of obstruction. No focal pericolonic inflammation or stranding. Moderate diverticulosis without evidence of diverticulitis. The appendix is normal. No bulky pelvic lymphadenopathy or free pelvic fluid. The urinary bladder is normal. No suspicious osseous abnormalities identified. IMPRESSION: No acute findings noted within the abdomen or pelvis.
[2019-02-21] MEDS ORDERED: Alum Hydrox/Mag Hydrox/Simeth 15 ML, Metoclopramide 5 MG, Lidocaine 2% 5 ML PO ONE ×3 (13:35)
[2019-02-21 15:18] VITALS: BP 150/81
== END 2019-02-21 14:17 | disposition home or self-care (01) ==
LOC: MW.ED 11:25
DX: R10.84 Generalized abdominal pain (principal); R10.10 Upper abdominal pain, unspecified; R11.2 Nausea with vomiting, unspecified; Z88.0 Allergy status to penicillin; Z79.899 Other long term (current) drug therapy
CPT/HCPCS: 36415; 74177; 80053; 83690; 85025; 86677; 96361; 96374; 96375; 99284; A9270; J2270; J2405; J7040; Q9967

== ENCOUNTER 2019-07-14 14:42 | Inpatient (IN) | payer MEDICAID ==
[2019-07-14] MEDS ORDERED: Albuterol/Ipratropium 3.0-0.5 MG/3 ML Neb Soln ONE (15:00)
[2019-07-14] MEDS ORDERED: methylPREDNISolone Sodium Succinate 125 MG/2 ML SDV IM ONE (15:04)
--- NOTE | 2019-07-14 15:18 | EDM.PDOC ---
ED HPI GENERAL MEDICAL PROBLEM - General Chief Complaint: Respiratory Problem Stated Complaint: COUGHING Time Seen by Provider: 07/14/19 15:18 Source of Information: Reports: Patient - History of Present Illness INITIAL COMMENTS - FREE TEXT/NARRATIVE: HISTORY AND PHYSICAL: History of present illness: [Patient was significant smoking history presents with cough wheeze and shortness of breath, no distress however audible use on arrival with hypoxia into the mid 80s] Review of systems: As per history of present illness and below otherwise all systems reviewed and negative. Past medical history: As per history of present illness and as reviewed below otherwise noncontributory. Surgical history: As per history of present illness and as reviewed below otherwise noncontributory. Social history: No reported history of drug or alcohol abuse. Family history: As per history of present illness and as reviewed below otherwise noncontributory. Physical exam: HEENT: Atraumatic, normocephalic, pupils reactive, negative for conjunctival pallor or scleral icterus, mucous membranes moist, throat clear, neck supple, nontender, trachea midline. Lungs: Respiratory wheeze throughout, breath sounds equal bilaterally, chest nontender. Heart: S1S2, regular, negative for clicks, rubs, or JVD. Abdomen: Soft, nondistended, nontender. Negative for masses or hepatosplenomegaly. Negative for costovertebral tenderness. Pelvis: Stable nontender. Genitourinary: Deferred. Rectal: Deferred. Extremities: Atraumatic, negative for cords or calf pain. Neurovascular unremarkable. Neuro: Awake, alert, oriented. Cranial nerves II through XII unremarkable. Cerebellum unremarkable. Motor and sensory unremarkable throughout. Exam nonfocal. Diagnostics: [Chest 1 view ] Therapeutics: [DuoNeb Solu-Medrol Oxygen Normal saline Azithromycin Solu-Medrol IV ] Impression: Hypoxia COPD/bronchitis Definitive disposition and diagnosis as appropriate pending reevaluation and review of above. - Related Data Allergies Allergy/AdvReac Type Severity Reaction Status Date / Time Penicillins Allergy Anaphylactic Verified 07/14/19 14:54 Shock Home Meds: Home Meds Cetirizine [ZyrTEC] 1 tab PO DAILY 03/23/18 [History] Naproxen Sodium [Aleve] 2 tab PO DAILY PRN 02/21/19 [History] Ondansetron [Zofran ODT] 4 mg PO Q6H PRN #10 tab.dis 02/21/19 [Rx] Past Medical History - Past Health History Medical/Surgical History: Denies Medical/Surgical History HEENT History: Reports: None Other HEENT History: Ears are filling up, not draining right Cardiovascular History: Reports: None Respiratory History: Reports: None Gastrointestinal History: Reports: None Genitourinary History: Reports: None 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 Musculoskeletal History: Reports: None Neurological History: Reports: None Psychiatric History: Reports: None Endocrine/Metabolic History: Reports: None Hematologic History: Reports: None Immunologic History: Reports: None Oncologic (Cancer) History: Reports: None Dermatologic History: Reports: Eczema, Other (See Below) Other Dermatologic History: erisypleas - Infectious Disease History Infectious Disease History: Reports: Chicken Pox - Past Surgical History Head Surgeries/Procedures: Reports: None HEENT Surgical History: Reports: None Cardiovascular Surgical History: Reports: None Respiratory Surgical History: Reports: None GI Surgical History: Reports: None Female Surgical History: Reports: None Endocrine Surgical History: Reports: None Neurological Surgical History: Reports: None Musculoskeletal Surgical History: Reports: None Oncologic Surgical History: Reports: None Dermatological Surgical History: Reports: None Social & Family History - Family History Family Medical History: Noncontributory Cardiac: Reports: [place] - Tobacco Use Smoking Status *Q: Current Every Day Smoker Years of Tobacco use: 40 Packs/Tins Daily: 1 - Caffeine Use Caffeine Use: Reports: Coffee, Soda - Recreational Drug Use Recreational Drug Use: No ED ROS GENERAL - Review of Systems Review Of Systems: See Below ED EXAM, GENERAL - Physical Exam Exam: See Below Course - Vital Signs Last Recorded V/S: Last Vital Signs Temp 98.2 F 07/14/19 14:53 Pulse 78 07/14/19 14:53 Resp 18 07/14/19 14:53 BP 139/86 07/14/19 14:53 Pulse Ox 91 L 07/14/19 14:53 - Orders/Labs/Meds Orders: Active Orders 24 hr Category Date Time Status RT Aerosol Therapy [RC] ASDIRECTED Care 07/14/19 15:43 Active CBC WITH AUTO DIFF [HEME] Stat Lab 07/14/19 16:19 Ordered COMPREHENSIVE METABOLIC PN,CMP [CHEM] Stat Lab 07/14/19 16:19 Ordered CULTURE BLOOD [BC] Stat Lab 07/14/19 16:20 Ordered CULTURE BLOOD [BC] Stat Lab 07/14/19 16:20 Ordered TROPONIN I [CHEM] Stat Lab 07/14/19 16:19 Ordered UA RFX DAVEY AND CULT IF INDIC [URIN] Stat Lab 07/14/19 16:19 Ordered Sodium Chloride 0.9% [Normal Saline] 1,000 ml Med 07/14/19 16:30 Ordered IV STAT methylPREDNISolone Sod Succ [Solu-MEDROL] Med 07/14/19 16:19 Once 125 mg IVPUSH ONETIME ONE Blood Culture x2 Reflex Set [OM.PC] Stat Oth 07/14/19 16:19 Ordered Meds: Medications Discontinued Medications Generic Name Dose Route Start Last Admin Trade Name Freq PRN Reason Stop Dose Admin Albuterol/Ipratropium Confirm 07/14/19 15:00 07/14/19 15:38 Duoneb 3.0-0.5 Mg/3 Ml Administered 07/14/19 15:01 3 ml Dose Administration 3 ml .ROUTE .STK-MED ONE Albuterol/Ipratropium 3 ml 07/14/19 15:43 07/14/19 15:49 Duoneb 3.0-0.5 Mg/3 Ml NEB 07/14/19 15:44 3 ml ONETIME ONE Administration Methylprednisolone Sodium Succinate 125 mg 07/14/19 15:04 07/14/19 15:36 Solu-Medrol IM 07/14/19 15:05 125 mg ONETIME ONE Administration Departure - Departure Time of Disposition: 16:21 Disposition: Refer to Observation Condition: Fair Clinical Impression: Hypoxia, COPD (chronic obstructive pulmonary disease), Bronchitis - Discharge Information Referrals: Hung Wiley MD [Primary Care Provider] - Forms: ED Department Discharge - My Orders Last 24 Hours: My Active Orders 07/14/19 15:43 RT Aerosol Therapy [RC] ASDIRECTED 07/14/19 16:19 CBC WITH AUTO DIFF [HEME] Stat COMPREHENSIVE METABOLIC PN,CMP [CHEM] Stat TROPONIN I [CHEM] Stat UA RFX DAVEY AND CULT IF INDIC [URIN] Stat methylPREDNISolone Sod Succ [Solu-MEDROL] 125 mg IVPUSH ONETIME ONE Blood Culture x2 Reflex Set [OM.PC] Stat 07/14/19 16:20 CULTURE BLOOD [BC] Stat CULTURE BLOOD [BC] Stat 07/14/19 16:30 Sodium Chloride 0.9% [Normal Saline] 1,000 ml IV STAT - Assessment/Plan Last 24 Hours: My Active Orders 07/14/19 15:43 RT Aerosol Therapy [RC] ASDIRECTED 07/14/19 16:19 CBC WITH AUTO DIFF [HEME] Stat COMPREHENSIVE METABOLIC PN,CMP [CHEM] Stat TROPONIN I [CHEM] Stat UA RFX DAVEY AND CULT IF INDIC [URIN] Stat methylPREDNISolone Sod Succ [Solu-MEDROL] 125 mg IVPUSH ONETIME ONE Blood Culture x2 Reflex Set [OM.PC] Stat 07/14/19 16:20 CULTURE BLOOD [BC] Stat CULTURE BLOOD [BC] Stat 07/14/19 16:30 Sodium Chloride 0.9% [Normal Saline] 1,000 ml IV STAT
--- NOTE | 2019-07-14 15:30 | CR ---
Indication: Shortness of breath. Technique: A single AP portable view of the chest was obtained. Comparison: January 25, 2016. Findings: The heart is normal in size. The lungs are clear. No infiltrate, pleural effusion, or pneumothorax is identified. Impression: No acute cardiopulmonary process. Dictated by Jenn Curran MD @ Jul 14 2019 3:28PM Signed by Dr. Jenn Curran @ Jul 14 2019 3:29PM
[2019-07-14] MEDS ORDERED: Albuterol/Ipratropium 3.0-0.5 MG/3 ML Neb Soln NEB ONE (15:43)
[2019-07-14] MEDS ORDERED: methylPREDNISolone Sodium Succinate 125 MG/2 ML SDV IVPUSH ONE (16:19)
[2019-07-14] MEDS ORDERED: Azithromycin 500 MG in Sodium Chloride 0.9% 250 ML IV SCH (16:30)
[2019-07-14] MEDS: Sodium Chloride 0.9% 1,000 ML IV SCH (16:53)
[2019-07-14 17:02] LABS: BLOOD UREA NITROGEN,BUN 15 mg/dL (7.0-18.0); CARBON DIOXIDE,CO2 24.1 mmol/L (21.0-32.0); CHLORIDE,CL 105 mmol/L (98-107); GLUCOSE RANDOM 159 mg/dL (74-106); POTASSIUM,K 3.7 mmol/L (3.5-5.1); SODIUM,NA 140 mmol/L (136-145)
[2019-07-14] MEDS ORDERED: Ondansetron 4 MG Tab.DIS PO PRN (17:56)
--- NOTE | 2019-07-14 18:03 | PCM.HP.2 ---
H&P History of Present Illness - General Date of Service: 07/14/19 Admit Problem/Dx: Admission Diagnosis/Problem Admission Diagnosis/Problem Hypoxia - History of Present Illness Initial Comments - Free Text/Narative: Patient is a 54-year-old female with a past medical history of COPD, tobacco abuse 40 years, chronic skin infection; last diagnosed as erysipelas and cervical stenosis: Presenting today with acute wheezing with shortness of breath with worsening productive cough 5-6 days. States normally she wakes up and can cough up large amounts of phlegm w/ subsequent resolution of her wheezing and congestion; however the past 5 days has not been able to expel the amount of mucus that she normally does. States she felt feverish with chills however did not measure her temperature. Patient denies any sick contacts. Does endorse smoking 40 years; one pack per day. Has tried in the past to discontinue smoking with Chantix; but has not made a past 30 days. Patient otherwise denies any other chronic conditions except for a skin infection which waxes and wanes. States that her neck and sometimes the sides of her face could turn red w/ blisters; has been diagnosed as erysipelas; however has been using multiple creams and medications with no resolution of symptoms; states it is currently stable right now. - Related Data Allergies/Adverse Reactions: Allergies Allergy/AdvReac Type Severity Reaction Status Date / Time Penicillins Allergy Anaphylactic Verified 07/14/19 14:54 Shock Home Medications: Home Meds Cetirizine [ZyrTEC] 1 tab PO DAILY 03/23/18 [History] Naproxen Sodium [Aleve] 2 tab PO DAILY PRN 02/21/19 [History] Ondansetron [Zofran ODT] 4 mg PO Q6H PRN #10 tab.dis 02/21/19 [Rx] Past Medical History - Past Health History Medical/Surgical History: Denies Medical/Surgical History HEENT History: Reports: None Other HEENT History: Ears are filling up, not draining right Cardiovascular History: Reports: None Respiratory History: Reports: None Gastrointestinal History: Reports: None Genitourinary History: Reports: None [employer] History: Reports: None Musculoskeletal History: Reports: None Neurological History: Reports: None Psychiatric History: Reports: None Endocrine/Metabolic History: Reports: None Hematologic History: Reports: None Immunologic History: Reports: None Oncologic (Cancer) History: Reports: None Dermatologic History: Reports: Eczema, Other (See Below) Other Dermatologic History: erisypleas - Infectious Disease History Infectious Disease History: Reports: Chicken Pox - Past Surgical History Head Surgeries/Procedures: Reports: None HEENT Surgical History: Reports: None Cardiovascular Surgical History: Reports: None Respiratory Surgical History: Reports: None GI Surgical History: Reports: None Female Surgical History: Reports: None Endocrine Surgical History: Reports: None Neurological Surgical History: Reports: None Musculoskeletal Surgical History: Reports: None Oncologic Surgical History: Reports: None Dermatological Surgical History: Reports: None Social & Family History - Family History Family Medical History: Noncontributory Cardiac: Reports: MS - Tobacco Use Smoking Status *Q: Current Every Day Smoker Years of Tobacco use: 40 Packs/Tins Daily: 1 - Caffeine Use Caffeine Use: Reports: Coffee, Soda - Recreational Drug Use Recreational Drug Use: No H&P Review of Systems - Review of Systems: Review Of Systems: See Below General: Reports: Chills. Denies: Fever HEENT: Reports: Sinus Congestion, Sore Throat Pulmonary: Reports: Shortness of Breath, Wheezing, Cough, Sputum. Denies: Hemoptysis Cardiovascular: Reports: Dyspnea on Exertion. Denies: Chest Pain, Palpitations Gastrointestinal: Reports: No Symptoms, Diarrhea. Denies: Abdominal Pain, Constipation, Decreased Appetite, Nausea Genitourinary: Denies: Dysuria, Frequency, Pain, Urgency Musculoskeletal: Reports: Neck Pain. Denies: Shoulder Pain, Back Pain, Leg Pain Skin: Reports: Rash Psychiatric: Reports: No Symptoms. Denies: Confusion, Depression Neurological: Denies: Confusion, Headache Exam - Exam Exam: See Below - Vital Signs Vital Signs: Last Vital Signs Temp 98.2 F 07/14/19 14:53 Pulse 78 07/14/19 17:46 Resp 22 H 07/14/19 17:46 BP 111/71 07/14/19 17:46 Pulse Ox 96 07/14/19 17:46 Weight: 175 lb - Exam Quality Assessment: Supplemental Oxygen General: Alert, Oriented, Cooperative HEENT: Conjunctiva Clear, Mucosa Moist & [place] Neck: Supple, Trachea Midline Lungs: Other (+inspraitory /expiratory wheeze w/ occasional end expiratory coarse bs ... 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 ) Neuro Extensive - Mental Status: Alert, Oriented x3, Normal Mood/Affect Neuro Extensive - Motor, Sensory, Reflexes: CN II-XII Intact Psychiatric: Alert, Normal Affect - Patient Data Lab Results Last 24 hrs: Laboratory Results - last 24 hr 07/14/19 07/14/19 Range/Units 16:28 16:28 WBC 13.48 H (4.0-11.0) K/uL RBC 4.73 (4.30-5.90) M/uL Hgb 14.7 (12.0-16.0) g/dL Hct 43.7 (36.0-46.0) % MCV 92.4 (80.0-98.0) fL MCH 31.1 (27.0-32.0) pg MCHC 33.6 (31.0-37.0) g/dL RDW Std Deviation 45.4 (28.0-62.0) fl RDW Coeff of Robby 13 (11.0-15.0) % Plt Count 323 (150-400) K/uL MPV 10.90 (7.40-12.00) fL Neut % (Auto) 51.1 (48.0-80.0) % Lymph % (Auto) 35.7 (16.0-40.0) % [place] % (Auto) 10.0 (0.0-15.0) % Eos % (Auto) 2.6 (0.0-7.0) % Baso % (Auto) 0.6 (0.0-1.5) % Neut # (Auto) 6.9 H (1.4-5.7) K/uL Lymph # (Auto) 4.8 H (0.6-2.4) K/uL [place] # (Auto) 1.4 H (0.0-0.8) K/uL Eos # (Auto) 0.4 (0.0-0.7) K/uL Baso # (Auto) 0.1 (0.0-0.1) K/uL Nucleated RBC % 0.0 /100WBC Nucleated RBCs # 0 K/uL Sodium 140 (136-145) mmol/L Potassium 3.7 (3.5-5.1) mmol/L Chloride 105 (98-107) mmol/L Carbon Dioxide 24.1 (21.0-32.0) mmol/L BUN 15 (7.0-18.0) mg/dL Creatinine 1.1 H (0.6-1.0) mg/dL Est Cr Clr Drug Dosing 51.39 mL/min Estimated GFR (MDRD) 51.4 ml/min Glucose 159 H (74-106) mg/dL Calcium 8.8 (8.5-10.1) mg/dL Total Bilirubin 0.3 (0.2-1.0) mg/dL AST 14 L (15-37) IU/L ALT 22 (14-63) IU/L Alkaline Phosphatase 80 (46-116) U/L Troponin I < 0.050 (0.000-0.056) ng/mL Total Protein 7.6 (6.4-8.2) g/dL Albumin 3.8 (3.4-5.0) g/dL Globulin 3.8 (2.6-4.0) g/dL Albumin/Globulin Ratio 1.0 (0.9-1.6) Result Diagrams: 07/14/19 16:28 07/14/19 16:28 Problem List Initiated/Reviewed/Updated: Yes Orders Last 24hrs: Active Orders 24 hr Category Date Time Status Admission Status [Patient Status] [ADT] Stat ADT 07/14/19 17:28 Active Activity as Tolerated [RC] .Routine Care 07/14/19 17:52 Ordered EKG Documentation Completion [RC] STAT Care 07/14/19 16:51 Active Intake and Output [RC] ASDIRECTED Care 07/14/19 17:51 Ordered RT Aerosol Therapy [RC] ASDIRECTED Care 07/14/19 15:43 Active RT Aerosol Therapy [RC] ASDIRECTED Care 07/14/19 17:54 Ordered Vital Signs [RC] PER UNIT ROUTINE Care 07/14/19 17:52 Ordered Regular Diet [DIET] Diet 07/15/19 Breakfast Ordered CULTURE BLOOD [BC] Stat Lab 07/14/19 16:45 Received CULTURE BLOOD [BC] Stat Lab 07/14/19 16:51 Received UA RFX DAVEY AND CULT IF INDIC [URIN] Stat Lab 07/14/19 16:19 Ordered Albuterol/Ipratropium [DuoNeb 3.0-0.5 MG/3 ML] Med 07/14/19 17:53 Ordered 3 ml NEB Q4HRRT PRN Azithromycin [Zithromax] Med 07/15/19 08:00 Ordered 500 mg PO Q24H Azithromycin [Zithromax] 500 mg Med 07/14/19 16:30 Active Sodium Chloride 0.9% [Normal Saline (AdvBag)] 250 ml IV ONETIME Cetirizine [ZyrTEC] Med 07/15/19 09:00 Ordered 10 mg PO DAILY Naproxen Sodium [Aleve] Med 07/14/19 17:56 Ordered 2 tab PO DAILY PRN Nicotine [Habitrol] Med 07/14/19 18:00 Ordered 21 mg TRDERM DAILY Ondansetron [Zofran ODT] Med 07/14/19 17:56 Ordered 4 mg PO Q6H PRN Sodium Chloride 0.9% [Normal Saline] 1,000 ml Med 07/14/19 16:30 Active IV STAT predniSONE Med 07/15/19 08:00 Ordered 40 mg PO WITHBREAKFAST Blood Culture x2 Reflex Set [OM.PC] Stat Oth 07/14/19 16:19 Ordered Code Status [Resuscitation Status] Routine Resus Stat 07/14/19 17:51 Ordered Medication Orders Albuterol/Ipratropium (Duoneb 3.0-0.5 Mg/3 Ml) 3 ml NEB Q4HRRT PRN PRN Reason: Shortness of Breath Azithromycin (Zithromax) 500 mg PO Q24H LORE Stop: 07/16/19 08:01 Cetirizine HCl (Zyrtec) 10 mg PO DAILY LORE Sodium Chloride (Normal Saline) 1,000 mls @ 125 mls/hr IV STAT LORE Last Admin: 07/14/19 16:53 Dose: 125 mls/hr Azithromycin 500 mg/ Sodium (Chloride) 250 mls @ 250 mls/hr IV ONETIME LORE Last Admin: 07/14/19 16:53 Dose: 250 mls/hr Nicotine (Habitrol) 21 mg TRDERM DAILY LORE Non-Formulary Medication (Naproxen Sodium [Aleve]) 2 tab PO DAILY PRN PRN Reason: Pain Ondansetron HCl (Zofran Odt) 4 mg PO Q6H PRN PRN Reason: Nausea Prednisone (Prednisone) 40 mg PO WITHBREAKFAST LORE Stop: 07/19/19 08:01 Assessment/Plan Comment:: Assessment 1. Acute hypoxic respiratory failure secondary to COPD exacerbation 2. Chronic tobacco abuse 40 years 3. Leukocytosis 4. Chronic skin lesion 5. Past medical history: Cervical stenosis, tobacco abuse, chronic skin lesion of unknown etiology Plan Admitted to observation. Full code. Intake output per routine. Vitals per routine. Diet: Regular. Activity: Up ad bry. GI prophylaxis: Pantoprazole. DVT prophylaxis: SCDs. 1. COPD exacerbation: We'll continue azithromycin 500 mg daily for 2 more days. Prednisone 40mg daily 4 additional days. DuoNeb every 4 hours [employer] F[employer]OR[employer]. Supplemental oxygen to maintain O2 sats > 88%. Repeat chest x-ray if clinical deterioration. CXR neg for acute infiltrates. Incentive spirometry. 2. Nicotine patch 21 daily 3, CBC, CMP in a.m.: Leukocytosis most likely secondary to COPD exacerbation 4. Chronic skin lesion: Continue to monitor; stable. We'll consider topical antibiotic cream if blisters form.
[2019-07-14] MEDS: Nicotine 21 MG/24 Hr Patch TRDERM SCH (18:54)
[2019-07-14] MEDS: Albuterol/Ipratropium 3.0-0.5 MG/3 ML Neb Soln NEB PRN (20:50)
[2019-07-15] MEDS: Sodium Chloride 0.9% 1,000 ML IV SCH ×3 (00:30→17:17)
[2019-07-15] MEDS: Albuterol/Ipratropium 3.0-0.5 MG/3 ML Neb Soln NEB PRN ×2 (00:33→13:29)
[2019-07-15 06:33] LABS: CARBON DIOXIDE,CO2 21.7 mmol/L (21.0-32.0)
[2019-07-15] MEDS: Pantoprazole 40 MG Tab.CR PO SCH (07:46)
[2019-07-15] MEDS ORDERED: Acetaminophen 325 MG Tab PO ONE (07:46)
[2019-07-15] MEDS: Cetirizine 10 MG Tab PO SCH (08:10)
[2019-07-15] MEDS: predniSONE 20 MG Tab PO SCH (08:11)
[2019-07-15] MEDS: Azithromycin 250 MG Tab PO SCH (08:13)
[2019-07-15] MEDS: Nicotine 21 MG/24 Hr Patch TRDERM SCH (08:13)
[2019-07-15] MEDS ORDERED: Naproxen 500 MG Tab PO PRN ×2 (08:45)
[2019-07-15] MEDS ORDERED: methylPREDNISolone Sodium Succinate 125 MG/2 ML SDV IVPUSH ONE (10:00)
--- NOTE | 2019-07-15 10:01 | PCM.PN ---
- General Info Date of Service: 07/15/19 Subjective Update: Patient upset this morning because she wants to go home but isn't feeling well enough to go home. She doesn't like being away from her . Was taken off oxygen this morning and was satting at 88% on RA at rest, dropped down to 79 -80% with ambulation. Improved to 90% with 1 L. Denies chest pain or abdominal pain. Eating and drinking appropriately. - Review of Systems General: Reports: No Symptoms HEENT: Reports: No Symptoms Pulmonary: Reports: Shortness of Breath, Cough Cardiovascular: Reports: No Symptoms Gastrointestinal: Reports: No Symptoms Genitourinary: Reports: No Symptoms Musculoskeletal: Reports: No Symptoms Skin: Reports: No Symptoms Neurological: Reports: No Symptoms Psychiatric: Reports: No Symptoms - Patient Data Vitals - Most Recent: Last Vital Signs Temp 98.2 F 07/15/19 08:00 Pulse 99 07/15/19 08:00 Resp 20 07/15/19 08:00 BP 138/85 07/15/19 08:00 Pulse Ox 94 L 07/15/19 08:00 Weight - Most Recent: 79.379 kg I&O - Last 24 Hours: Intake & Output 07/14/19 07/15/19 07/15/19 22:59 06:59 14:59 Intake Total 1659 Output Total 400 Balance 1259 Lab Results Last 24 Hours: Laboratory Results - last 24 hr 07/14/19 07/14/19 07/14/19 Range/Units 16:28 16:28 19:10 WBC 13.48 H (4.0-11.0) K/uL RBC 4.73 (4.30-5.90) M/uL Hgb 14.7 (12.0-16.0) g/dL Hct 43.7 (36.0-46.0) % MCV 92.4 (80.0-98.0) fL MCH 31.1 (27.0-32.0) pg MCHC 33.6 (31.0-37.0) g/dL RDW Std Deviation 45.4 (28.0-62.0) fl RDW Coeff of Robby 13 (11.0-15.0) % Plt Count 323 (150-400) K/uL MPV 10.90 (7.40-12.00) fL Neut % (Auto) 51.1 (48.0-80.0) % Lymph % (Auto) 35.7 (16.0-40.0) % [place] % (Auto) 10.0 (0.0-15.0) % Eos % (Auto) 2.6 (0.0-7.0) % Baso % (Auto) 0.6 (0.0-1.5) % Neut # (Auto) 6.9 H (1.4-5.7) K/uL Lymph # (Auto) 4.8 H (0.6-2.4) K/uL [place] # (Auto) 1.4 H (0.0-0.8) K/uL Eos # (Auto) 0.4 (0.0-0.7) K/uL Baso # (Auto) 0.1 (0.0-0.1) K/uL Nucleated RBC % 0.0 /100WBC Nucleated RBCs # 0 K/uL Sodium 140 (136-145) mmol/L Potassium 3.7 (3.5-5.1) mmol/L Chloride 105 (98-107) mmol/L Carbon Dioxide 24.1 (21.0-32.0) mmol/L BUN 15 (7.0-18.0) mg/dL Creatinine 1.1 H (0.6-1.0) mg/dL Est Cr Clr Drug Dosing 51.39 mL/min Estimated GFR (MDRD) 51.4 ml/min Glucose 159 H (74-106) mg/dL Calcium 8.8 (8.5-10.1) mg/dL Total Bilirubin 0.3 (0.2-1.0) mg/dL AST 14 L (15-37) IU/L ALT 22 (14-63) IU/L Alkaline Phosphatase 80 (46-116) U/L Troponin I < 0.050 (0.000-0.056) ng/mL Total Protein 7.6 (6.4-8.2) g/dL Albumin 3.8 (3.4-5.0) g/dL Globulin 3.8 (2.6-4.0) g/dL Albumin/Globulin Ratio 1.0 (0.9-1.6) Urine Color YELLOW Urine Appearance SLT CLOUDY Urine pH 5.5 (5.0-8.0) Ur Specific [place] >= 1.030 (1.001-1.035) Urine Protein NEGATIVE (NEGATIVE) mg/dL Urine Glucose (UA) NEGATIVE (NEGATIVE) mg/dL Urine Ketones NEGATIVE (NEGATIVE) mg/dL Urine Occult Blood TRACE-INTACT H (NEGATIVE) Urine Nitrite NEGATIVE (NEGATIVE) Urine Bilirubin NEGATIVE (NEGATIVE) Urine Urobilinogen 0.2 (<2.0) EU/dL Ur Leukocyte Esterase NEGATIVE (NEGATIVE) Urine RBC 1-3 (0-2/HPF) Urine WBC 0-2 (0-5/HPF) Ur Epithelial Cells MANY (NONE-FEW) Urine Bacteria RARE (NEGATIVE) Urine Mucus HEAVY (NONE-MOD) 07/15/19 07/15/19 Range/Units 05:50 05:50 WBC 10.24 (4.0-11.0) K/uL RBC 4.25 L (4.30-5.90) M/uL Hgb 13.2 (12.0-16.0) g/dL Hct 39.6 (36.0-46.0) % MCV 93.2 (80.0-98.0) fL MCH 31.1 (27.0-32.0) pg MCHC 33.3 (31.0-37.0) g/dL RDW Std Deviation 46.8 (28.0-62.0) fl RDW Coeff of Robby 14 (11.0-15.0) % Plt Count 320 (150-400) K/uL MPV 11.30 (7.40-12.00) fL Neut % (Auto) 90.7 H (48.0-80.0) % Lymph % (Auto) 7.1 L (16.0-40.0) % [place] % (Auto) 2.1 (0.0-15.0) % Eos % (Auto) 0.0 (0.0-7.0) % Baso % (Auto) 0.1 (0.0-1.5) % Neut # (Auto) 9.3 H (1.4-5.7) K/uL Lymph # (Auto) 0.7 (0.6-2.4) K/uL [place] # (Auto) 0.2 (0.0-0.8) K/uL Eos # (Auto) 0.0 (0.0-0.7) K/uL Baso # (Auto) 0.0 (0.0-0.1) K/uL Nucleated RBC % 0.0 /100WBC Nucleated RBCs # 0 K/uL Sodium 140 (136-145) mmol/L Potassium 5.0 (3.5-5.1) mmol/L Chloride 107 (98-107) mmol/L Carbon Dioxide 21.7 (21.0-32.0) mmol/L BUN 13 (7.0-18.0) mg/dL Creatinine 1.1 H (0.6-1.0) mg/dL Est Cr Clr Drug Dosing 51.39 mL/min Estimated GFR (MDRD) 51.4 ml/min Glucose 196 H (74-106) mg/dL Calcium 8.6 (8.5-10.1) mg/dL Total Bilirubin 0.1 L (0.2-1.0) mg/dL AST 9 L (15-37) IU/L ALT 19 (14-63) IU/L Alkaline Phosphatase 64 (46-116) U/L Troponin I (0.000-0.056) ng/mL Total Protein 6.7 (6.4-8.2) g/dL Albumin 3.2 L (3.4-5.0) g/dL Globulin 3.5 (2.6-4.0) g/dL Albumin/Globulin Ratio 0.9 (0.9-1.6) Urine Color Urine Appearance Urine pH (5.0-8.0) Ur Specific [place] (1.001-1.035) Urine Protein (NEGATIVE) mg/dL Urine Glucose (UA) (NEGATIVE) mg/dL Urine Ketones (NEGATIVE) mg/dL Urine Occult Blood (NEGATIVE) Urine Nitrite (NEGATIVE) Urine Bilirubin (NEGATIVE) Urine Urobilinogen (<2.0) EU/dL Ur Leukocyte Esterase (NEGATIVE) Urine RBC (0-2/HPF) Urine WBC (0-5/HPF) Ur Epithelial Cells (NONE-FEW) Urine Bacteria (NEGATIVE) Urine Mucus (NONE-MOD) Med Orders - Current: Current Medications Albuterol/Ipratropium (Duoneb 3.0-0.5 Mg/3 Ml) 3 ml NEB Q4HRRT PRN PRN Reason: Shortness of Breath Last Admin: 07/15/19 00:33 Dose: 3 ml Azithromycin (Zithromax) 500 mg PO Q24H LORE Stop: 07/16/19 08:01 Last Admin: 07/15/19 08:13 Dose: 500 mg Cetirizine HCl (Zyrtec) 10 mg PO DAILY LORE Last Admin: 07/15/19 08:10 Dose: 10 mg Sodium Chloride (Normal Saline) 1,000 mls @ 125 mls/hr IV STAT LORE Last Admin: 07/15/19 08:15 Dose: 125 mls/hr Methylprednisolone Sodium Succinate (Solu-Medrol) 125 mg IVPUSH ONETIME ONE Stop: 07/15/19 10:01 Naproxen (Naprosyn) 500 mg PO DAILY PRN PRN Reason: Pain Nicotine (Habitrol) 21 mg TRDERM DAILY [facility] Last Admin: 07/15/19 08:13 Dose: 21 mg Ondansetron HCl (Zofran Odt) 4 mg PO Q6H PRN PRN Reason: Nausea Pantoprazole Sodium (Protonix) 40 mg PO ACBREAKFAST [facility] Last Admin: 07/15/19 07:46 Dose: 40 mg Prednisone (Prednisone) 40 mg PO WITHBREAKFAST [facility] Stop: 07/19/19 08:01 Last Admin: 07/15/19 08:11 Dose: 40 mg Discontinued Medications Acetaminophen (Tylenol) 650 mg PO ONETIME ONE Stop: 07/15/19 07:47 Last Admin: 07/15/19 08:11 Dose: 650 mg Albuterol/Ipratropium (Duoneb 3.0-0.5 Mg/3 Ml) Confirm Administered Dose 3 ml .ROUTE .STK-MED ONE Stop: 07/14/19 15:01 Last Admin: 07/14/19 15:38 Dose: 3 ml Albuterol/Ipratropium (Duoneb 3.0-0.5 Mg/3 Ml) 3 ml NEB ONETIME ONE Stop: 07/14/19 15:44 Last Admin: 07/14/19 15:49 Dose: 3 ml Azithromycin 500 mg/ Sodium (Chloride) 250 mls @ 250 mls/hr IV ONETIME LORE Last Admin: 07/14/19 16:53 Dose: 250 mls/hr Methylprednisolone Sodium Succinate (Solu-Medrol) 125 mg IM ONETIME ONE Stop: 07/14/19 15:05 Last Admin: 07/14/19 15:36 Dose: 125 mg Methylprednisolone Sodium Succinate (Solu-Medrol) 125 mg IVPUSH ONETIME ONE Stop: 07/14/19 16:20 Last Admin: 07/14/19 16:36 Dose: 125 mg Naproxen (Naproxen Sodium) 440 mg PO DAILY PRN PRN Reason: Pain Naproxen (Naprosyn) 440 mg PO DAILY PRN PRN Reason: Pain - Exam Quality Assessment: Supplemental Oxygen General: Alert, Oriented, Mild Distress Lungs: Wheezing, Other (increased work of breathing, gasping for air when speaking) GI/Abdominal Exam: Normal Bowel Sounds, Soft, Non-Tender, No Distention Extremities: No Pedal Edema Skin: Warm, Dry, Intact Neurological: No New Focal Deficit Psy/Mental Status: Alert, Normal Affect - Problem List Review Problem List Initiated/Reviewed/Updated: Yes - My Orders Last 24 Hours: My Active Orders 07/15/19 10:00 guaiFENesin [Robitussin] 200 mg PO Q6H PRN methylPREDNISolone Sod Succ [Solu-MEDROL] 125 mg IVPUSH ONETIME ONE - Assessment Assessment:: 1. Acute hypoxic respiratory failure secondary to COPD exacerbation- dropped down to 88% on room air at rest and 79-80% with ambulation, improved to 90% with 1 L. Continue IV azithromycin, oral prednisone, and duobnebs. Will give one time dose of solumedrol. Oxygen as needed, wean if tolerated. 2. Tobacco use disorder- nicotine patch working, discussed quitting smoking when she is discharged - Plan Plan:: Assessment 1. Acute hypoxic respiratory failure secondary to COPD exacerbation 2. Chronic tobacco abuse 40 years 3. Leukocytosis 4. Chronic skin lesion 5. Past medical history: Cervical stenosis, tobacco abuse, chronic skin lesion of unknown etiology Plan Admitted to observation. Full code. Intake output per routine. Vitals per routine. Diet: Regular. Activity: Up ad bry. GI prophylaxis: Pantoprazole. DVT prophylaxis: SCDs. 1. COPD exacerbation: We'll continue azithromycin 500 mg daily for 2 more days. Prednisone 40mg daily 4 additional days. DuoNeb every 4 hours [employer]. Supplemental oxygen to maintain O2 sats > 88%. Repeat chest x-ray if clinical deterioration. CXR neg for acute infiltrates. Incentive spirometry. 2. Nicotine patch 21 daily 3, CBC, CMP in a.m.: Leukocytosis most likely secondary to COPD exacerbation 4. Chronic skin lesion: Continue to monitor; stable. We'll consider topical antibiotic cream if blisters form.
[2019-07-15] MEDS: guaiFENesin 100 MG/5 ML Soln 5 ML UD Cup PO PRN (14:30)
[2019-07-16 06:46] LABS: CARBON DIOXIDE,CO2 26.3 mmol/L (21.0-32.0); POTASSIUM,K 4.3 mmol/L (3.5-5.1)
[2019-07-16] MEDS: Pantoprazole 40 MG Tab.CR PO SCH (06:58)
[2019-07-16] MEDS: Albuterol/Ipratropium 3.0-0.5 MG/3 ML Neb Soln NEB PRN ×3 (07:46→21:14)
[2019-07-16] MEDS: Nicotine 21 MG/24 Hr Patch TRDERM SCH (08:24)
[2019-07-16] MEDS: guaiFENesin 100 MG/5 ML Soln 5 ML UD Cup PO PRN ×2 (08:25→17:57)
[2019-07-16] MEDS: Azithromycin 250 MG Tab PO SCH (08:25)
[2019-07-16] MEDS: predniSONE 20 MG Tab PO SCH (08:25)
[2019-07-16] MEDS: Cetirizine 10 MG Tab PO SCH (08:25)
--- NOTE | 2019-07-16 10:10 | PCM.PN ---
- General Info Date of Service: 07/16/19 - Review of Systems Systems Review Comment:: patient reports respiratory distress this morning. Woke up this morning feeling as worse as when she first came in. Her cough was productive but when she cleared her lungs she felt better. - Patient Data Vitals - Most Recent: Last Vital Signs Temp 36.3 C 07/16/19 08:00 Pulse 95 07/16/19 08:00 Resp 22 H 07/16/19 08:00 BP 136/98 H 07/16/19 08:00 Pulse Ox 92 L 07/16/19 08:00 Weight - Most Recent: 79.379 kg I&O - Last 24 Hours: Intake & Output 07/15/19 07/16/19 07/16/19 22:59 06:59 14:59 Intake Total 2 800 Balance 2 800 Lab Results Last 24 Hours: Laboratory Results - last 24 hr 07/16/19 07/16/19 Range/Units 06:07 06:07 WBC 19.66 H (4.0-11.0) K/uL RBC 4.66 (4.30-5.90) M/uL Hgb 14.4 (12.0-16.0) g/dL Hct 43.4 (36.0-46.0) % MCV 93.1 (80.0-98.0) fL MCH 30.9 (27.0-32.0) pg MCHC 33.2 (31.0-37.0) g/dL RDW Std Deviation 47.7 (28.0-62.0) fl RDW Coeff of Robby 14 (11.0-15.0) % Plt Count 355 (150-400) K/uL MPV 11.20 (7.40-12.00) fL Neut % (Auto) 76.1 (48.0-80.0) % Lymph % (Auto) 14.0 L (16.0-40.0) % [place] % (Auto) 9.7 (0.0-15.0) % Eos % (Auto) 0.1 (0.0-7.0) % Baso % (Auto) 0.1 (0.0-1.5) % Neut # (Auto) 15.0 H (1.4-5.7) K/uL Lymph # (Auto) 2.8 H (0.6-2.4) K/uL [place] # (Auto) 1.9 H (0.0-0.8) K/uL Eos # (Auto) 0.0 (0.0-0.7) K/uL Baso # (Auto) 0.0 (0.0-0.1) K/uL Nucleated RBC % 0.0 /100WBC Nucleated RBCs # 0 K/uL Sodium 140 (136-145) mmol/L Potassium 4.3 (3.5-5.1) mmol/L Chloride 106 (98-107) mmol/L Carbon Dioxide 26.3 (21.0-32.0) mmol/L BUN 9 (7.0-18.0) mg/dL Creatinine 1.0 (0.6-1.0) mg/dL Est Cr Clr Drug Dosing 56.53 mL/min Estimated GFR (MDRD) 57.4 ml/min Glucose 117 H (74-106) mg/dL Calcium 8.7 (8.5-10.1) mg/dL [place] Results Last 24 Hours: Microbiology 07/14/19 16:51 Aerobic Blood Culture - Preliminary Blood - Venous - Lab Draw NO GROWTH AFTER 1 DAY Anaerobic Blood Culture - Preliminary NO GROWTH AFTER 1 DAY 07/14/19 16:45 Aerobic Blood Culture - Preliminary Blood - Venous NO GROWTH AFTER 1 DAY Anaerobic Blood Culture - Preliminary NO GROWTH AFTER 1 DAY Med Orders - Current: Current Medications Albuterol/Ipratropium (Duoneb 3.0-0.5 Mg/3 Ml) 3 ml NEB Q4HRRT PRN PRN Reason: Shortness of Breath Last Admin: 07/16/19 07:46 Dose: 3 ml Cetirizine HCl (Zyrtec) 10 mg PO DAILY [facility] Last Admin: 07/16/19 08:25 Dose: 10 mg Guaifenesin (Robitussin) 200 mg PO Q6H PRN PRN Reason: Cough Last Admin: 07/16/19 08:25 Dose: 200 mg Methylprednisolone Sodium Succinate (Solu-Medrol) 125 mg IVPUSH Q12H [facility] Naproxen (Naprosyn) 500 mg PO DAILY PRN PRN Reason: Pain Last Admin: 07/15/19 14:30 Dose: 500 mg Nicotine (Habitrol) 21 mg TRDERM DAILY [facility] Last Admin: 07/16/19 08:24 Dose: 21 mg Ondansetron HCl (Zofran Odt) 4 mg PO Q6H PRN PRN Reason: Nausea Pantoprazole Sodium (Protonix) 40 mg PO ACBREAKFAST LORE Last Admin: 07/16/19 06:58 Dose: 40 mg Discontinued Medications Acetaminophen (Tylenol) 650 mg PO ONETIME ONE Stop: 07/15/19 07:47 Last Admin: 07/15/19 08:11 Dose: 650 mg Albuterol/Ipratropium (Duoneb 3.0-0.5 Mg/3 Ml) Confirm Administered Dose 3 ml .ROUTE .STK-MED ONE Stop: 07/14/19 15:01 Last Admin: 07/14/19 15:38 Dose: 3 ml Albuterol/Ipratropium (Duoneb 3.0-0.5 Mg/3 Ml) 3 ml NEB ONETIME ONE Stop: 07/14/19 15:44 Last Admin: 07/14/19 15:49 Dose: 3 ml Azithromycin (Zithromax) 500 mg PO Q24H LORE Stop: 07/16/19 08:01 Last Admin: 07/16/19 08:25 Dose: 500 mg Sodium Chloride (Normal Saline) 1,000 mls @ 125 mls/hr IV STAT LORE Last Admin: 07/15/19 17:17 Dose: 125 mls/hr Azithromycin 500 mg/ Sodium (Chloride) 250 mls @ 250 mls/hr IV ONETIME LORE Last Admin: 07/14/19 16:53 Dose: 250 mls/hr Methylprednisolone Sodium Succinate (Solu-Medrol) 125 mg IM ONETIME ONE Stop: 07/14/19 15:05 Last Admin: 07/14/19 15:36 Dose: 125 mg Methylprednisolone Sodium Succinate (Solu-Medrol) 125 mg IVPUSH ONETIME ONE Stop: 07/14/19 16:20 Last Admin: 07/14/19 16:36 Dose: 125 mg Methylprednisolone Sodium Succinate (Solu-Medrol) 125 mg IVPUSH ONETIME ONE Stop: 07/15/19 10:01 Last Admin: 07/15/19 10:19 Dose: 125 mg Naproxen (Naproxen Sodium) 440 mg PO DAILY PRN PRN Reason: Pain Naproxen (Naprosyn) 440 mg PO DAILY PRN PRN Reason: Pain Prednisone (Prednisone) 40 mg PO WITHBREAKFAST LORE Stop: 07/19/19 08:01 Last Admin: 07/16/19 08:25 Dose: 40 mg - Exam General: Alert, Oriented HEENT: Mucous Membr. Moist/[place] Lungs: Rhonchi Cardiovascular: Regular Rate, Regular Rhythm Extremities: Non-Tender, No Pedal Edema Skin: Warm, Dry, Intact Neurological: No New Focal Deficit - Problem List Review Problem List Initiated/Reviewed/Updated: No - My Orders Last 24 Hours: My Active Orders 07/16/19 10:01 Admission Status [Patient Status] [ADT] Routine Cardiac Monitoring [RC] . DIRECTED - Plan Plan:: 54 yo female admitted for COPD exacerbation. Due to slow improvement in symptoms will switch to inpatient. We will treat with solumedrol BID, DuoNeb, and azithromycin. We will ween oxygen as tolerated.
[2019-07-16] MEDS ORDERED: Azithromycin 250 MG Tab PO SCH (10:15)
[2019-07-16] MEDS: Heparin Sodium 5,000 Units/ML Vial SUBCUT SCH ×2 (11:21→17:56)
[2019-07-16] MEDS: methylPREDNISolone Sodium Succinate 125 MG/2 ML SDV IVPUSH SCH (17:56)
[2019-07-17] MEDS: Heparin Sodium 5,000 Units/ML Vial SUBCUT SCH ×2 (01:49→12:35)
[2019-07-17] MEDS: methylPREDNISolone Sodium Succinate 125 MG/2 ML SDV IVPUSH SCH (04:39)
[2019-07-17] MEDS: Pantoprazole 40 MG Tab.CR PO SCH (06:39)
[2019-07-17 08:03] VITALS: BP 152/81; PULSE 68
[2019-07-17] MEDS ORDERED: Azithromycin 250 MG Tab PO SCH (09:00)
[2019-07-17] MEDS: Cetirizine 10 MG Tab PO SCH (09:01)
[2019-07-17] MEDS: Nicotine 21 MG/24 Hr Patch TRDERM SCH (09:02)
--- NOTE | 2019-07-17 11:10 | PCM.DCSUM1 ---
Discharge Summary - Discharge Data Discharge Date: 07/17/19 Discharge Disposition: Home, Self-Care 01 Condition: Good - Referral to Home Health Primary Care Physician: Hung Wiley MD - Patient Summary/Data Hospital Course: Patient is a 54-year-old female admitted for COPD exacerbation when she presented with shortness of breath, wheezing and productive cough. Chest x-ray showed no acute pathology. She was treated with Duonebs, solumedrol and azithromycin. She did make improvement and patient stated she slept well last night and is requesting discharge home today. She was discharged with Advair, Azithromycin, three more days of prednisone, and albuterol inhaler. She has plans on continuing the nicotine patch at home and is encouraged about quitting smoking. - Patient Instructions Diet: Regular Diet as Tolerated - Discharge Plan Prescriptions/Med Rec: Albuterol Sulfate [Albuterol Sulfate Hfa] 8.5 gm IH Q4H PRN #1 hfa.aer.ad PRN Reason: wheezing Azithromycin 250 mg PO DAILY #4 tablet Fluticasone/Salmeterol [Advair 250-50] 1 puff INH BID #1 diskus Omeprazole Magnesium [Prilosec Otc] 20 mg PO DAILY #7 tablet. predniSONE [Prednisone] 50 mg PO DAILY #3 tablet Home Medications: Home Meds Cetirizine [ZyrTEC] 1 tab PO DAILY 03/23/18 [History] Naproxen Sodium [Aleve] 2 tab PO DAILY PRN 02/21/19 [History] Ondansetron [Zofran ODT] 4 mg PO Q6H PRN #10 tab.dis 02/21/19 [Rx] Albuterol Sulfate [Albuterol Sulfate Hfa] 8.5 gm IH Q4H PRN #1 hfa.aer.ad [Rx] Azithromycin 250 mg PO DAILY #4 tablet 07/17/19 [Rx] Fluticasone/Salmeterol [Advair 250-50] 1 puff INH BID #1 diskus 07/17/19 [Rx] Omeprazole Magnesium [Prilosec Otc] 20 mg PO DAILY #7 tablet. 07/17/19 [Rx] predniSONE [Prednisone] 50 mg PO DAILY #3 tablet 07/17/19 [Rx] Patient Handouts: Chronic Obstructive Pulmonary Disease Exacerbation, Easy-to- Read, Hypoxia Referrals: [facility] [Outside] Kirti Bonilla MD [Ordering Only Provider] - 07/23/19 1:15 pm - Discharge Summary/Plan Comment DC Time >30 min.: No - Patient Data Vitals - Most Recent: Last Vital Signs Temp 36.2 C 07/17/19 08:03 Pulse 68 07/17/19 08:03 Resp 18 07/17/19 08:03 BP 152/81 H 07/17/19 08:03 Pulse Ox 90 L 07/17/19 08:49 Weight - Most Recent: 79.379 kg I&O - Last 24 hours: Intake & Output 07/16/19 07/17/19 07/17/19 22:59 06:59 14:59 Intake Total 800 500 Balance 800 500 DAVEY Results - Last 24 hrs: Microbiology 07/14/19 16:51 Aerobic Blood Culture - Preliminary Blood - Venous - Lab Draw NO GROWTH AFTER 2 DAYS Anaerobic Blood Culture - Preliminary NO GROWTH AFTER 2 DAYS 07/14/19 16:45 Aerobic Blood Culture - Preliminary Blood - Venous NO GROWTH AFTER 2 DAYS Anaerobic Blood Culture - Preliminary NO GROWTH AFTER 2 DAYS Med Orders - Current: Current Medications Albuterol/Ipratropium (Duoneb 3.0-0.5 Mg/3 Ml) 3 ml NEB Q4HRRT PRN PRN Reason: Shortness of Breath Last Admin: 07/16/19 21:14 Dose: 3 ml Azithromycin (Zithromax) 500 mg PO Q24H [facility] Last Admin: 07/17/19 09:01 Dose: 500 mg Cetirizine HCl (Zyrtec) 10 mg PO DAILY [facility] Last Admin: 07/17/19 09:01 Dose: 10 mg Guaifenesin (Robitussin) 200 mg PO Q6H PRN PRN Reason: Cough Last Admin: 07/16/19 17:57 Dose: 200 mg Heparin Sodium (Porcine) (Heparin Sodium) 5,000 units SUBCUT Q8H LORE Last Admin: 07/17/19 01:49 Dose: 5,000 units Methylprednisolone Sodium Succinate (Solu-Medrol) 125 mg IVPUSH Q12H [facility] Last Admin: 07/17/19 04:39 Dose: 125 mg Naproxen (Naprosyn) 500 mg PO DAILY PRN PRN Reason: Pain Last Admin: 07/15/19 14:30 Dose: 500 mg Nicotine (Habitrol) 21 mg TRDERM DAILY [facility] Last Admin: 07/17/19 09:02 Dose: 21 mg Ondansetron HCl (Zofran Odt) 4 mg PO Q6H PRN PRN Reason: Nausea Pantoprazole Sodium (Protonix) 40 mg PO ACBREAKFAST [facility] Last Admin: 07/17/19 06:39 Dose: 40 mg Discontinued Medications Acetaminophen (Tylenol) 650 mg PO ONETIME ONE Stop: 07/15/19 07:47 Last Admin: 07/15/19 08:11 Dose: 650 mg Albuterol/Ipratropium (Duoneb 3.0-0.5 Mg/3 Ml) Confirm Administered Dose 3 ml .ROUTE .STK-MED ONE Stop: 07/14/19 15:01 Last Admin: 07/14/19 15:38 Dose: 3 ml Albuterol/Ipratropium (Duoneb 3.0-0.5 Mg/3 Ml) 3 ml NEB ONETIME ONE Stop: 07/14/19 15:44 Last Admin: 07/14/19 15:49 Dose: 3 ml Azithromycin (Zithromax) 500 mg PO Q24H LORE Stop: 07/16/19 08:01 Last Admin: 07/16/19 08:25 Dose: 500 mg Azithromycin (Zithromax) 500 mg PO Q24H LORE Last Admin: 07/16/19 11:25 Dose: Not Given Sodium Chloride (Normal Saline) 1,000 mls @ 125 mls/hr IV STAT LORE Last Admin: 07/15/19 17:17 Dose: 125 mls/hr Azithromycin 500 mg/ Sodium (Chloride) 250 mls @ 250 mls/hr IV ONETIME LORE Last Admin: 07/14/19 16:53 Dose: 250 mls/hr Methylprednisolone Sodium Succinate (Solu-Medrol) 125 mg IM ONETIME ONE Stop: 07/14/19 15:05 Last Admin: 07/14/19 15:36 Dose: 125 mg Methylprednisolone Sodium Succinate (Solu-Medrol) 125 mg IVPUSH ONETIME ONE Stop: 07/14/19 16:20 Last Admin: 07/14/19 16:36 Dose: 125 mg Methylprednisolone Sodium Succinate (Solu-Medrol) 125 mg IVPUSH ONETIME ONE Stop: 07/15/19 10:01 Last Admin: 07/15/19 10:19 Dose: 125 mg Naproxen (Naproxen Sodium) 440 mg PO DAILY PRN PRN Reason: Pain Naproxen (Naprosyn) 440 mg PO DAILY PRN PRN Reason: Pain Prednisone (Prednisone) 40 mg PO WITHBREAKFAST LORE Stop: 07/19/19 08:01 Last Admin: 07/16/19 08:25 Dose: 40 mg
== END 2019-07-17 12:15 | disposition home or self-care (01) | DRG 189 ==
LOC: MW.ED 14:42 → MW.MS 17:43 → OBSVTOIN 07-16 10:01 → MW.MS 07-16 10:27
PROVIDERS: ADMIT Internal Medicine; ATTEND Internal Medicine
DX: J96.01 Acute respiratory failure with hypoxia (principal); J44.1 Chronic obstructive pulmonary disease with (acute) exacerbation; F17.210 Nicotine dependence, cigarettes, uncomplicated; M48.02 Spinal stenosis, cervical region; A46 Erysipelas; Z88.0 Allergy status to penicillin; Z79.52 Long term (current) use of systemic steroids; Z79.899 Other long term (current) drug therapy
CPT/HCPCS: 36415; 71045; 71045-26; 80048; 80053; 81001; 84484; 85025; 87040; 93005; 94640; 96361; 96365; 96372; 96375; 96376; 99284-25; 99285; A9270-GY; G0378; J0456; J1644; J2930; J7040; J7050; J7620-GY